=== PATIENT | female | born 1970 | race Caucasian/White ===

== ENCOUNTER 2023-02-20 07:32 | Outpatient (AMB) | payer BC, SELFPAY ==
--- NOTE | 2023-02-20 07:34 | MHC.PC.OV ---
Vital Signs 02/20/23 07:35 Height 5 ft 6.5 in Weight 145 lb BMI 23.1 BP 122/76 Blood Pressure Location Lt brachial Position Standing Pulse 71 Pulse Source Pulse Oximeter Pulse Oximetry (%) 98 Oxygen Delivery Method Room Air Intake Visit Reasons: NPV- Requesting PE Intake Note: Pt is here today for New patient visit PE. Pt states that she moved here from [place] in June. 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 She moved from [place] in June but is originally from [place]. Pt c/o chronic R thumb pain since October. Pt has been taking NSAIDs and wearing a brace without relief. Patient denies any injury. She uses her hands a lot, working on a computer and hiking using hiking poles. 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 1. Little interest or pleasure in doing things: several days 2. Feeling down, depressed, or hopeless: several days 3. Trouble falling or staying asleep, or sleeping too much: more than half the days 4. Feeling tired or having little energy: several days 5. Poor appetite or overeating: not at all 6. Feeling bad about yourself - or that you are a failure or have let yourself or your family down: not at all 7. Trouble concentrating on things, such as reading the newspaper or watching television: not at all 8. Moving or speaking so slowly that other people could have noticed. Or the opposite - being so fidgety or restless that you have been moving around a lot more than usual: not at all 9. Thoughts that you would be better off or of hurting yourself in some way: not at all Total score: 5 Depression Screening Interpretation: Negative Source: Developed by Drs. Guille Moya, Gela Barillas, Eduardo Hinton and colleagues, with an educational marietta from [employer]. Thrive Questionnaire Date Thrive assessed: 02/20/23 I am a: Patient What is your living situation today?: I have a steady place to live Within the past 12 months, did the food you bought not last and you didn't have the money to get more?: Never true Within the past 12 months, did you worry whether your food would run out before you got money to buy more?: Never true Do you have trouble paying for medicines?: No Do you have trouble getting transportation to medical appointments?: No Do you have trouble paying your heating and electricity bill?: No Do you have trouble taking care of your child, family member or friend?: No Do you have trouble with day-to-day activities such as bathing, preparing meals, shopping, managing finances, etc.?: No Are you currently unemployed and looking for a job?: No Are you interested in more education?: No Please select the resources that you would like help with: None Currently or been in a relationship where the following occur: no concerns reported AUDIT C Alcohol Use Questionnaire (AUDIT-C) 1. How often do you have a drink containing alcohol?: Never 3. How often do you have six or more drinks on one occasion?: Never Total Score: 0 CHICA-7 AMB Questionnaire CHICA-7 Date CHICA - 7 assessed: 07/12/23 Feeling nervous, anxious, or on edge: 1 = Several days Not being able to stop or control worryin = Several days Worrying too much about different things: 1 = Several days Trouble relaxin = Not at all Being so restless that it is hard to sit still: 0 = Not at all Becoming easily annoyed or irritable: 1 = Several days Feeling afraid as if something awful might happen: 0 = Not at all Total CHICA-7 score (0-4 normal; 5-9 mild; 10-14 moderate; 15-21 severe): 4 Source: Developed by Drs. Guille Moya, Gela Barillas, Eduardo Hinton and colleagues, with an educational marietta from [employer]. Review of Systems Const All systems reviewed & are unremarkable except as noted in HPI and below Reports no additional complaints Eyes Reports no additional complaints ENT Reports no additional complaints Card Reports no additional complaints Resp Reports no additional complaints GI Reports no additional complaints Physical exam (Primary Care) Vital Signs: Last Vital Signs Pulse 71 02/20/23 07:35 BP 122/76 02/20/23 07:35 Pulse Ox 98 02/20/23 07:35 Oxygen Delivery Method Room Air 02/20/23 07:35 BMI result Body Mass Index 23.1 Tobacco/Smoking Status: Tobacco use Status Tobacco use date assessed 02/20/23 02/20/23 07:50 Patient Tobacco Use Status Never used Tobacco 02/20/23 08:19 e-Cigarette/Vaping Use Never Used 02/20/23 08:19 Depression Screening Interpretation: Negative Currently or been in a relationship where the following occur: no concerns reported Const General: no acute distress HENMT Head: Yes normal to inspection Ears: hearing grossly normal bilaterally Face and sinus: Yes normal facial exam Mouth: Normal oral and palatal mucosa present Throat: Yes posterior oropharynx normal Neck Neck: Yes no lymphadenopathy and Yes supple Resp Effort & Inspection: normal respiratory effort Auscultation: clear to auscultation bilaterally Cardio Rhythm: regular rhythm Heart sounds: S1 normal heart sound present and S2 normal heart sound present GI Inspection: Yes normal to inspection Palpation (GI): Soft to palpation Percussion: Yes normal to percussion Auscultation: normal bowel sounds Extrem Other: there is decreased range of motion and tenderness at the base of left thumb, no joint swelling erythema warmth General: Yes no clubbing, cyanosis or edema Assessment and Plan Assessment & Plan (1) Chronic bilateral low back pain: Comment: MR in Apr 2022 DJD,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 She will be referred for screening colonoscopy. 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 Code(s): Z01.419 - Encounter for gynecological examination (general) (routine) without abnormal findings (4) Hx of screening mammography: Comment: 04/2022 in [place] Code(s): Z92.89 - Personal history of other medical treatment (5) Dysplastic nevi: Comment: Referred to dermatology Code(s): D23.9 - Other benign neoplasm of skin, unspecified (6) Left wrist tendinitis: Code(s): M77.8 - Other enthesopathies, not elsewhere classified Plan: Check x-rays of both wrists and referred to hand surgeon for cortisone injection (7) Ovarian cyst: Comment: 3.5 cm R ovarian cyst on MR 05/03 Code(s): N83.209 - Unspecified ovarian cyst, unspecified side Plan: for a right ovarian cyst found on the MRI of lumbar spine pelvic ultrasound will be obtained to evaluate Orders: Orders Comprehensive [place]. Panel Fast Today Z00.00 - Encounter for general adult medical examination without abnormal findings Lipid Panel Today Z00.00 - Encounter for general adult medical examination without abnormal findings TSH reflex Free T4 Today Z00.00 - Encounter for general adult medical examination without abnormal findings Vitamin D 25-OH Total Today Z00.00 - Encounter for general adult medical examination without abnormal findings Complete Blood Count Auto Diff Today Z00.00 - Encounter for general adult medical examination without abnormal findings US pelvic and transvaginal Today N83.209 - Unspecified ovarian cyst, unspecified side XR wrist RT 2V Today M25.532 - Pain in left wrist, M77.8 - Other enthesopathies, not elsewhere classified XR wrist LT 2V Today M25.532 - Pain in left wrist, M77.8 - Other enthesopathies, not elsewhere classified Referrals Gastroenterology Referral Z00.00 - Encounter for general adult medical examination without abnormal findings Hand Surgery Referral M77.8 - Other enthesopathies, not elsewhere classified Dermatology Referral D23.9 - Other benign neoplasm of skin, unspecified Medications: New tizanidine 2 mg PO Q8H PRN 60 tabs 1RF muscle spasticity meloxicam 15 mg PO DAILY 30 tabs 0RF Coding Level of Care Code New Pt Prev Care 40-64y(43373) Diagnoses Chronic bilateral low back pain M54.50; G89.29 Annual physical exam Z00.00 Normal pelvic exam Z01.419 Hx of screening mammography Z92.89 Dysplastic nevi D23.9 Left wrist tendinitis M77.8 Ovarian cyst N83.209
[2023-02-20 07:35] VITALS: BP 122/76; PULSE 71; O2SAT 98; BMI 23.1
== END 2023-02-20 08:45 | disposition home or self-care (01) ==
PROVIDERS: Visit Provider Internal Medicine
DX: Z00.00 Encounter for general adult medical examination without abnormal findings (principal); M54.50 Low back pain, unspecified; G89.29 Other chronic pain; Z92.89 Personal history of other medical treatment; D23.9 Other benign neoplasm of skin, unspecified; M77.8 Other enthesopathies, not elsewhere classified; N83.209 Unspecified ovarian cyst, unspecified side
CPT/HCPCS: 99386

== ENCOUNTER 2023-02-20 08:26 | Outpatient (REF) | payer BC, SELFPAY ==
--- NOTE | ~2023-02-20 | XR_ITS ---
X-RAY RIGHT WRIST X-RAY LEFT WRIST CLINICAL HISTORY: Enthesopathies, unspecified. COMPARISON: No relevant prior studies are available for comparison. TECHNIQUE: 3 views of each wrist. FINDINGS: Right wrist: No acute fractures or malalignment. Minimal joint space narrowing of the first carpometacarpal space. No erosions or chondrocalcinosis. No significant soft tissue abnormality. Left wrist: No acute fractures or malalignment. Minimal joint space narrowing of the first carpometacarpal space. No erosions or chondrocalcinosis. No significant soft tissue abnormality. XR/XR wrist RT min 3V IMPRESSION: 1. No acute fractures or subluxation. 2. Mild bilateral degenerative osteoarthrosis of the first carpometacarpal joint. 3. No erosions or chondrocalcinosis.
--- NOTE | ~2023-02-20 | XR_ITS ---
X-RAY RIGHT WRIST X-RAY LEFT WRIST CLINICAL HISTORY: Enthesopathies, unspecified. COMPARISON: No relevant prior studies are available for comparison. TECHNIQUE: 3 views of each wrist. FINDINGS: Right wrist: No acute fractures or malalignment. Minimal joint space narrowing of the first carpometacarpal space. No erosions or chondrocalcinosis. No significant soft tissue abnormality. Left wrist: No acute fractures or malalignment. Minimal joint space narrowing of the first carpometacarpal space. No erosions or chondrocalcinosis. No significant soft tissue abnormality. XR/XR wrist LT min 3V IMPRESSION: 1. No acute fractures or subluxation. 2. Mild bilateral degenerative osteoarthrosis of the first carpometacarpal joint. 3. No erosions or chondrocalcinosis.
[2023-02-20 11:17] LABS: Appearance Urine Clear; Color Urine Yellow; Glucose Urine UA Negative (Negative); Leukocyte Esterase Urine Negative (Negative); Nitrite Urine Negative (Negative); Specific Gravity - Urine <= 1.005 (1.005-1.025); Urine Blood Negative (Negative); Urine Ketones Negative (Negative); Urine Protein Negative (Neg-Trace)
[2023-02-20 11:17] LABS: MANUAL DIFF FLAG NO
[2023-02-20 11:20] LABS: Bacteria Urine None Seen (None Seen); Hyaline Casts Urine 0-2 /LPF (0-2); RBC Urine 0-2 /HPF (0-2); Squamous Epithelial Cell Urine 0-2 /HPF (0-2); WBC Urine 0-5 /HPF (0-5)
[2023-02-20 11:38] LABS: Basophils Percent Auto 0.5 % (0-2); Eosinophils Absolute Auto 0.1 X10*3/uL (0.0-0.4); Eosinophils Percent Auto 2.2 % (0-4); Hematocrit 41.6 % (37.0-47.0); Hemoglobin 14.5 g/dl (12.0-16.0); Imm Gran Abs Auto 0.01 X10*3/uL (0.00-0.03); Imm Gran Pct Auto 0.2 % (0.0-0.4); Lymphocytes Percent Auto 34.4 % (20-40); Mean Corpuscular HGB Conc 34.9 g/dl (31.0-35.0); Mean Corpuscular Volume 91.8 fL (80.0-98.0); Mean Platelet Volume 11.7 fL (9.4-12.3); Monocytes Absolute Auto 0.5 X10*3/uL (0.1-1.2); Monocytes Percent Auto 7.9 % (2-11); Neutrophils Absolute Auto 3.2 x10*3/uL (2.0-8.3); Neutrophils Percent Auto 54.8 % (45-73); Platelet Count 258 X10*3/uL (160-400); Red Blood Count 4.53 X10*6/uL (4.20-5.50); White Blood Count 5.8 X10*3/uL (4.8-10.8)
[2023-02-20 12:32] LABS: Alanine Aminotransferase 16 U/L (0-31); Albumin Level 4.3 g/dL (3.5-5.0); Alkaline Phosphatase 57 U/L (39-117); Anion Gap 15 (12-20); Aspartate Amino Transferase 18 U/L (5-31); Blood Urea Nitrogen 8 mg/dL (9-16); Calcium 9.8 mg/dL (8.4-10.2); Carbon Dioxide 23 mmol/L (22-29); Chloride 105 mmol/L (96-108); Cholesterol 261 mg/dL; Estimated Glomerular Filt Rate > 60; Glucose Fasting 98 mg/dL (60-99); HDL Cholesterol 85 mg/dL; LDL Cholesterol Calculated 162 mg/dl; Potassium 3.9 mmol/L (3.3-5.1); Sodium 139 mmol/L (135-145); Total Protein 7.1 g/dL (6.5-8.0); Triglycerides 71 mg/dL
[2023-02-20 12:51] LABS: Bilirubin Total 0.8 mg/dL (0.0-1.0); TSH reflex Free T4 1.47 uIU/mL (0.32-4.0); Vitamin D 25-OH Total 99.4 ng/mL (>30)
== END 2023-02-20 08:27 | disposition home or self-care (01) ==
LOC: HO.HMGCLDS 08:26
PROVIDERS: PCP Internal Medicine; Visit Provider Internal Medicine
DX: Z00.00 Encounter for general adult medical examination without abnormal findings (principal); M77.8 Other enthesopathies, not elsewhere classified
CPT/HCPCS: 36415; 73110; 80053; 80061; 81001; 82306; 84443; 85025

== ENCOUNTER 2023-02-26 12:58 | Outpatient (REF) | payer BC, SELFPAY ==
--- NOTE | ~2023-02-26 | US_ITS ---
EXAMINATION: US PELVIS CLINICAL INFORMATION: A 3.5 cm right ovarian cyst seen on MR April 2022. COMPARISON: None available. TECHNIQUE: Ultrasound of the pelvis is performed using both transabdominal and transvaginal transducers along with Doppler. Transvaginal imaging is performed due to inadequate visualization transabdominally. FINDINGS: Uterus: The uterus is retroverted, heterogeneous and measures 5.4 x 3.6 x 3.6 cm. Visualization severely limited as patient had difficulty tolerating transvaginal exam, bowel gas and uterine positioning. The endometrium is not visualized. No discrete fibroid. Left ovary not visualized. No significant free fluid. Right ovary measures 2.3 x 1.1 x 1.2 cm, volume 1.5 mL and is unremarkable. US/US pelvic and transvaginal IMPRESSION: 1. Visualization severely limited as patient had difficulty tolerating transvaginal exam, bowel gas and retroverted uterine positioning. 2. The endometrium is not visualized. 3. No discrete fibroid. 4. Left ovary not visualized. Right ovary unremarkable. 5. No significant free fluid.
== END 2023-02-26 12:59 | disposition home or self-care (01) ==
LOC: HO.HMGCX 12:58
PROVIDERS: PCP Internal Medicine; Visit Provider Internal Medicine
DX: N83.209 Unspecified ovarian cyst, unspecified side (principal)
CPT/HCPCS: 76830; 76856

== ENCOUNTER 2023-04-05 08:00 | Outpatient (AMB) | payer BC, SELFPAY ==
--- NOTE | 2023-04-05 08:07 | MHC.OFFVIS ---
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 Pain started back in August when she started to use her walking poles. She states that her pain is on the base of the thumb and it moves down to the wrist. Patient reports using a brace that helps her relief some of the pain. 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 The patient reports in 08/2022 she started to use a walking pole. She claims the pain is on the base of her left thumb and it radiates down her wrist. She states she uses a brace that gives her some relief from pain. 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 No ecchymosis, erythema, or edema. Able to perform full finger flexion, extension, abduction, adduction, finger cross, okay sign, and thumbs up without deficit. Positive dorsal compartment tenderness to palpation left thumb. Positive Bay?s. Able to make a closed fist. Sensation intact. Capillary refill is brisk. Radial pulse intact. Assessment & Plan Assessment & Plan (1) De Quervain's tenosynovitis, left: Code(s): M65.4 - Radial styloid tenosynovitis [de Quervain] Plan Ms. Booth is a 52-year-old right hand dominant female who presents in the office today, as a new patient, for an evaluation of left wrist pain. The patient reports in 08/2022 she started to use a walking pole. She claims the pain is on the base of her left thumb and it radiates down her wrist. She states she uses a brace that gives her some relief from pain. The patient will be referred to Dr. Beckham for De Quervain's injection. She has a stabling brace she will wear in the mean time. Follow up will be with Dr. Levine, or sooner if needed. X-rays of the left hand, obtained on 02/20/2023, revealed mild osteoarthritis at the CMC joint. NO evidence of acute fracture or dislocation. Patient Instructions: Scribed for Swetha Suarez PA-C by Mónica Ray medical transcriber, on 04/05/2023 at 8:06 am, EST. Coding Level of Care Code New Pt Level 4 (96197) Diagnoses De Quervain's tenosynovitis, left M65.4
[2023-04-05 08:12] VITALS: BMI 23.4
== END 2023-04-05 08:36 | disposition home or self-care (01) ==
PROVIDERS: PCP Internal Medicine; Visit Provider Physician Assistant
DX: M65.4 Radial styloid tenosynovitis [de Quervain] (principal); M18.12 Unilateral primary osteoarthritis of first carpometacarpal joint, left hand
CPT/HCPCS: 99203

== ENCOUNTER → 2023-04-05 08:00 | Outpatient (BNVA) | payer BC, SELFPAY | PROVIDERS: PCP Internal Medicine; Visit Provider Physician Assistant ==

== ENCOUNTER 2023-04-18 10:15 | Outpatient (AMB) | payer BC, SELFPAY ==
--- NOTE | 2023-04-18 10:23 | MHC.OFFVIS ---
Intake Intake Visit Reasons: ov- De Quervarias of left hand Intake Note: Lauren 52 yr old female presents today for her left hand/wrist pain. Patient reports in 08/2022 she started to use a walking pole. She claims the pain is on the base of her left thumb and radiates down her wrist. She states she uses a brace that gives her some relief from pain. Last seen on 04/05/23 with Orlando Suarez who referred patient to be seen with Dr. Beckham to discuss dequervain injection. Allergies No Known Allergies Allergy (Verified 04/18/23 10:26) Medication List - Last Reconciled 04/18/23 by Magy Greenberg MD tizanidine 2 mg PO Q8H PRN HPI HPI Comments History of Present Illness Details Previously seen by Swetha Suarez PA for de Quervain tenosynovitis. Referred to physiatry for further management and possible injection. Symptoms may have started after moving/packing June to July 2022. Could be related to a wear mittens while hiking with walking sticks. She had recently moved from [place] to [place]. Pain under base of left thumb. Wearing the thumb spica splint some mild makes it better. Denies numbness Denies weakness Mentions history of right-sided neck and arm pain, hand numbness. Previously told to have disc herniation in [place]. This is separate issue from left hand. 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 MSK: [No] joint effusion noted. [No] deformity noted. [No intrinsic hand weakness noted]. [No atrophy noted]. Bay test positive left. Carpal compression test [negative]. Tinel sign [negative]. Strength is [5/5 in all muscle groups tested]. No increased tone noted. Neurological: Neurologic examination of the upper and lower extremities was nonfocal with intact sensation, muscle stretch reflexes and without focal motor deficits [ ]. Spicer?s [negative bilaterally]. Gait is [non-]antalgic without loss of balance. Office Procedures Therapeutic Injection Therapeutic Injection Details: Consent obtained. Patient placed left hand vertically with thumb held in slight flexion. Gap between tendons abductor pollicis longus and extensor pollicis brevis was identified. Area cleaned in sterile manner. Gauge 25 0.5 inch needle inserted perpendicular into the gap approximately between the tendons. Injected solution containing 10 mg Kenalog and 0.75 mL 2% lidocaine. Patient tolerated procedure well. No complications noted. All charges added?: Additional procedure code (CPT) needed (need code for tendon injection (de quervain tenosynovitis)) Office Meds triamcinolone acetonide 40 mg/mL suspension for injection Performing Provider: Magy Greenberg MD Performing Location: [facility] [place] [facility] Documented (not given) by: Magy Greenberg MD on 04/18/23 11:53 Dose Route Admin Location Dispensed Lot Number Expiration Date [facility] [employer] 10 mg Tendon Sheath Inj. mL Results Reviewed Results Reviewed: 04/18/23 10:57 Lidocaine HCl 1 % [Xylocaine 1 %] 2 ml .ROUTE .STK-MED ONE Triamcinolone Acetonide [Kenalog-40] 40 mg .ROUTE .STK-MED ONE I independently reviewed the results of the following: The bilateral wrist x-ray showed mild arthritis CMC joint. Assessment & Plan Assessment & Plan (1) De Quervain's tenosynovitis, left: Code(s): M65.4 - Radial styloid tenosynovitis [de Quervain] Plan Thumb spica splint is helping at least partially. She is interested in doing injection and it the was done during this visit. Continue splint during the day. No lifting today for 24 hours. Assessment and plan discussed with patent, and patient was agreeable. All questions were answered thoroughly. Follow-up in 3 months. Orders: Orders Trigger Point Injection Today M65.4 - Radial styloid tenosynovitis [de Quervain] Medications: New triamcinolone acetonide 10 mg (0.25 mL) Tendon Sheath Inj. ONCE 0.25 mL 0RF M65.4 - Radial styloid tenosynovitis [de Quervain] Coding Level of Care Code New Pt Level 4 (75546) Diagnoses De Quervain's tenosynovitis, left M65.4 Comment Please double check CPT codes used for injection
== END 2023-04-18 11:13 | disposition home or self-care (01) ==
PROVIDERS: PCP Internal Medicine; Visit Provider Physical Medicine & Rehabilitation
DX: M65.4 Radial styloid tenosynovitis [de Quervain] (principal)
CPT/HCPCS: 20550; 99204

== ENCOUNTER → 2023-04-18 10:15 | Outpatient (BNVA) | payer BC, SELFPAY | PROVIDERS: PCP Internal Medicine; Visit Provider Physical Medicine & Rehabilitation | DX: M65.4 Radial styloid tenosynovitis [de Quervain] (principal) | CPT/HCPCS: 20550; J3301 ==

== ENCOUNTER 2023-05-16 08:35 | Outpatient (AMB) | payer BC, SELFPAY ==
--- NOTE | 2023-05-16 08:42 | MHC.OFFVIS ---
Intake Vital Signs 05/16/23 08:49 Height 5 ft 6 in Weight 145 lb BMI 23.4 Intake Visit Reasons: Newprob-Right hand/shoulder Intake Note: Lauren 52 yr old male rt hand presents today for a new problem visit for her right hand and shoulder. Patient last seen with Dr Beckham for left hand dequervain, received trigger point injections. Patient states her right shoulder pain is intermittent for the last 3 -4 yrs. States she feels tightness and achenes. States her ROM is okay but gives discomfort in neck. At times she feels grinding in shoulder. Patient mention she at times gets nerve pain in her hand due to her pinch nerve in neck. patient states she has tried P.T for her shoulder with temporary relief. Denies injection for right shoulder in the past. Allergies No Known Allergies Allergy (Verified 05/16/23 08:48) Medication List - Last Reconciled 05/16/23 by Magy Greenberg MD tizanidine 2 mg PO Q8H PRN HPI HPI Comments History of Present Illness Details Recently seen for left De Quervain tenosynovitis. Injection done, took 1-2 weeks to have some effect, then after improved that she was only getting episodes of pain. Yesterday she must have done something that has caused the thumb to click. Feels like marbles or bone rubbing. She can bend the thumb better though. She is wearing the thumb spica splint. Today, right shoulder been on/off 2-3 years ago. Xray in [place] was normal? Once a week, would have ache lateral neck down to shoulder. Still has ROM full but difficult to put shirt on or fasten bra to the back. Aches while sleeping. Does not shoot down to fingers. Separate tingling on the fingers, right. Right handed. Denies tingling on left hand except for symptoms above. 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 MSK: Cervical range of motion full. Negative Spurling sign. Tender/tight on the right upper trapezius. Right shoulder range of motion full. Negative Goldberg sign. Negative empty can sign. Negative speed's test. No joint effusion noted. No deformity noted. No intrinsic hand weakness noted. No atrophy noted. Bay test is now negative on the left side. There is no inflammation or swelling on the base of the left thumb. There is tenderness under base/CMC joint. Negative Bay test on the right. Carpal compression test positive on the right wrist. Tinel sign negative. Strength is 5/5 in all muscle groups tested. No increased tone noted. Neurological: Neurologic examination of the upper and lower extremities was nonfocal with intact sensation, muscle stretch reflexes and without focal motor deficits . Spicer?s negative bilaterally. Gait is non-antalgic without loss of balance. Results Reviewed Results Reviewed: X-RAY RIGHT WRIST ordered by Dr. Price X-RAY LEFT WRIST CLINICAL HISTORY: Enthesopathies, unspecified. COMPARISON: No relevant prior studies are available for comparison. TECHNIQUE: 3 views of each wrist. FINDINGS: Right wrist: No acute fractures or malalignment. Minimal joint space narrowing of the first carpometacarpal space. No erosions or chondrocalcinosis. No significant soft tissue abnormality. Left wrist: No acute fractures or malalignment. Minimal joint space narrowing of the first carpometacarpal space. No erosions or chondrocalcinosis. No significant soft tissue abnormality. XR/XR wrist LT min 3V IMPRESSION: 1. No acute fractures or subluxation. 2. Mild bilateral degenerative osteoarthrosis of the first carpometacarpal joint. 3. No erosions or chondrocalcinosis. Assessment & Plan Assessment & Plan (1) De Quervain's tenosynovitis, left: Code(s): M65.4 - Radial styloid tenosynovitis [de Quervain] (2) Arthritis of carpometacarpal (CMC) joint of left thumb: Code(s): M18.12 - Unilateral primary osteoarthritis of first carpometacarpal joint, left hand (3) Numbness of right hand: Code(s): R20.0 - Anesthesia of skin (4) Myofascial pain: Code(s): M79.18 - Myalgia, other site (5) Shoulder pain, right: Code(s): M25.511 - Pain in right shoulder Qualifiers: Chronicity: chronic Qualified Code(s): M25.511 - Pain in right shoulder; G89.29 - Other chronic pain (6) Bilateral tennis elbow: Code(s): M77.11 - Lateral epicondylitis, right elbow; M77.12 - Lateral epicondylitis, left elbow Plan 1. Left de Quervain tenosynovitis is improved based on normal exam today. Continue to wear a thumb spica splint but needs rest breaks in between. The clicking that she complains of could be from the tendon slipping over the joint or disc CMC arthritis itself. 2. Right-sided shoulder pain is most likely from myofascial. Did not see signs of shoulder joint issues or rotator cuff issues. We will give her exercises to stretch out her cervical/trapezius muscles. She may apply heat up to 3 times a day as needed for pain. We will also get shoulder x-ray today to rule out DJD. 3. She does have numbness in the right hand. We will schedule her for EMG to confirm Carpal Tunnel Syndrome. 4. Finally she complains of bilateral elbow pain, exam shows tenderness over lateral epicondyles, most likely tennis elbow. We will give her exercises for this. May apply ice p.r.n. for pain. We talked about being careful with use of NSAIDs given her side effects of being gassy. Tylenol might be safer. Orders: Orders NE electromyogram (EMG) Today M18.12 - Unilateral primary osteoarthritis of first carpometacarpal joint, left hand, R20.0 - Anesthesia of skin XR shoulder RT min 2V Today M25.511 - Pain in right shoulder NE nerve conduction velocity Today M18.12 - Unilateral primary osteoarthritis of first carpometacarpal joint, left hand, R20.0 - Anesthesia of skin Coding Level of Care Code Est Pt Level 4 (72968) Diagnoses De Quervain's tenosynovitis, left M65.4 Arthritis of carpometacarpal (CMC) joint of left thumb M18.12 Numbness of right hand R20.0 Myofascial pain M79.18 Chronic right shoulder pain M25.511; G89.29 Chronicity: chronic Bilateral tennis elbow M77.11; M77.12
[2023-05-16 08:49] VITALS: BMI 23.4
== END 2023-05-16 09:32 | disposition home or self-care (01) ==
PROVIDERS: PCP Internal Medicine; Visit Provider Physical Medicine & Rehabilitation
DX: M65.4 Radial styloid tenosynovitis [de Quervain] (principal); M18.12 Unilateral primary osteoarthritis of first carpometacarpal joint, left hand; R20.0 Anesthesia of skin; M79.18 Myalgia, other site; M25.511 Pain in right shoulder; G89.29 Other chronic pain; M77.11 Lateral epicondylitis, right elbow; M77.12 Lateral epicondylitis, left elbow
CPT/HCPCS: 99214

== ENCOUNTER 2023-05-16 08:35 | Outpatient (REF) | payer BC, SELFPAY | END 2023-05-16 08:36 | disposition home or self-care (01) | LOC: HO.HOSX 08:35 | PROVIDERS: PCP Internal Medicine; Visit Provider Physical Medicine & Rehabilitation | DX: M25.511 Pain in right shoulder (principal); M65.4 Radial styloid tenosynovitis [de Quervain]; M18.12 Unilateral primary osteoarthritis of first carpometacarpal joint, left hand; R20.2 Paresthesia of skin; M79.18 Myalgia, other site; M77.11 Lateral epicondylitis, right elbow; M77.12 Lateral epicondylitis, left elbow | CPT/HCPCS: 73030 ==

== ENCOUNTER 2023-06-13 15:34 | Outpatient (REF) | payer BC, SELFPAY ==
--- NOTE | 2023-06-13 15:37 | EMG_ITS ---
Chief complaint: Right hand numbness Reason for referral: Evaluate for Carpal Tunnel Syndrome Procedure done: Right upper extremity NCS/EMG Precautions and/or limitations: None The limb temperature was monitored continuously and remained between 32-36 degrees C during the performance of the NCS. Nerve Conduction Studies Anti Sensory Summary Table ?Stim Site NR Onset (ms) Norm Onset (ms) Peak (ms) Norm Peak (ms) O-P Amp (?V) Norm O-P Amp Site1 Site2 Delta-0 (ms) Dist (cm) Anastacio (m/s) Norm Anastacio (m/s) Right Median Anti Sensory (2nd Digit) Wrist ? 2.6 3.3 <3.6 54.9 >10 Wrist 2nd Digit 2.6 14.0 54 Right Ulnar Anti Sensory (5th Digit) Wrist ? 2.6 3.4 <3.7 48.2 >15.0 Wrist 5th Digit 2.6 14.0 54 Motor Summary Table ?Stim Site NR Onset (ms) Norm Onset (ms) O-P Amp (mV) Norm O-P Amp iAmp (mV) Amp (1st) (%) Site1 Site2 Delta-0 (ms) Dist (cm) Anastacio (m/s) Norm Anastacio (m/s) Right Median Motor (Abd Poll Brev) Wrist ? 3.8 <3.9 10.6 >4.5 12.4 100.0 Elbow Wrist 3.5 20.0 57 >45 Elbow ? 7.3 10.6 12.3 100.0 Right Ulnar Motor (Abd Dig Minimi) Wrist ? 3.0 <3.0 8.2 >5 9.7 100.0 B Elbow Wrist 2.9 19.0 66 >45 B Elbow ? 5.9 7.7 9.1 93.9 A Elbow B Elbow 1.3 10.0 77 >45 A Elbow ? 7.2 7.9 9.3 96.3 Comparison Summary Table ?Stim Site NR Peak (ms) Norm Peak (ms) P-T Amp (?V) Site1 Site2 Delta-P (ms) Norm Delta (ms) Right Median/Radial Dig I Comparison (Digit 1 - 10cm) Median ? 2.7 <2.9 995.0 Median Radial 0.4 Radial ? 2.3 <2.8 55.7 EMG ?Side Muscle Nerve Root Ins Act Fibs Psw Amp Dur Poly Recrt Int Pat Comment Right 1stDorInt Ulnar C8-T1 Nml Nml Nml Nml Nml 0 Nml Complete Right FlexCarRad Median C6-7 Nml Nml Nml Nml Nml 0 Nml Complete Right Biceps Musculocut C5-6 Nml Nml Nml Nml Nml 0 Nml Complete Right Triceps Radial C6-7-8 Nml Nml Nml Nml Nml 0 Nml Complete Right Deltoid Axillary C5-6 Nml Nml Nml Nml Nml 0 Nml Complete FINDINGS: All motor and sensory nerves tested showed normal latencies, amplitudes and conduction velocities. Concentric needle EMG was performed in selected muscles of the right upper extremity. Study did not reveal signs of electric abnormalities as shown in the table below. IMPRESSION: 1. This is a normal study. 2. There is no electrodiagnostic evidence for median neuropathy, ulnar neuropathy, brachial plexopathy, or cervical radiculopathy. Thank you for your kind referral. Magy Greenberg MD, KERRI Board Certified, [place] Board [employer] and Rehabilitation (ABPMR) Board Certified, [place] Board of Electrodiagnostic Medicine (ABEM) [place] [id number] [facility]
== END 2023-06-13 15:35 | disposition home or self-care (01) ==
LOC: HO.NEURO 15:34
PROVIDERS: PCP Internal Medicine; Visit Provider Physical Medicine & Rehabilitation
DX: R20.0 Anesthesia of skin (principal); M18.12 Unilateral primary osteoarthritis of first carpometacarpal joint, left hand
CPT/HCPCS: 95886; 95909

== ENCOUNTER → 2023-06-13 15:37 | Outpatient (BNV) | payer BC, SELFPAY | PROVIDERS: PCP Internal Medicine; Visit Provider Physical Medicine & Rehabilitation | DX: R20.0 Anesthesia of skin (principal) | CPT/HCPCS: 95886; 95909 ==

== ENCOUNTER 2023-07-03 13:04 | Outpatient (AMB) | payer BC, SELFPAY ==
--- NOTE | 2023-07-03 13:07 | A.OFFVIS_ITS ---
Intake Vital Signs 07/03/23 13:13 Height 5 ft 6 in Weight 141 lb 1.533 oz BMI 22.8 BP 143/84 H Blood Pressure Location Lt brachial Position Sitting Pulse 85 Intake Visit Reasons: Colonoscopy screening Intake Note: Lauren presents in the office as a colonoscopy screening. CC: She states that she is not having any GI concerns. 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 female here today for pre c olonoscopy screening.? Patient was sent to us by her PCP.? This is her first colonoscopy screening.? Patient denies any gastrointestinal symptoms in the past or at present.? Patient's paternal grandmother of colorectal cancer.? Denies history of difficulty with sedation or anesthesia in the past.? Negative for history of sleep apnea.? Denies any history of cardiac, renal, pulmonary, or hepatic disease.?? No history of infectious? diseases like hepatitis A, B, C, HIV or tuberculosis.? Patient is not on any anticoagulation therapy. 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 Cognitive needs: No Hearing needs: No Vision needs: Yes Review of Systems Const Denies weight gain and Denies weight loss ENT Reports no additional complaints, Denies dysphagia and Denies odynophagia Card Reports no additional complaints Resp Reports no additional complaints GI Denies abdominal pain, Denies belching, Denies melena, Denies bloating, Denies change in bowel habits, Denies dysphagia, Denies excessive flatus, Denies dyspepsia, Denies heartburn, Denies diarrhea, Denies loose stools, Denies nausea, Denies odynophagia and Denies vomiting Musc Reports no additional complaints Neuro Reports no additional complaints Psych Reports no additional complaints Endo Reports no additional complaints Physical Exam Const General: healthy appearing, no acute distress and well developed Nutritional Appearance: well nourished Orientation/consciousness: patient oriented x3 HEENT Head: Yes normal to inspection, Yes normocephalic and Yes atraumatic Face and sinus: Yes normal facial exam Mouth: Normal oral and palatal mucosa present Throat: Yes posterior oropharynx normal, Yes tonsils normal and Yes uvula midline Eyes General: appearance normal, both eyes and all related structures Neck Neck: Yes normal visual inspection, Yes full ROM and Yes trachea midline Thyroid: Thyroid normal Resp Effort & Inspection: normal respiratory effort, able to speak in complete sentences, no tracheal deviation and symmetric chest movement Auscultation: clear to auscultation bilaterally Cardio Rate: regular rate Heart sounds: S1 normal heart sound present and S2 normal heart sound present GI Inspection: Yes normal to inspection and No distended Palpation (GI): Soft to palpation, not firm, nontender and No hepatosplenomegaly present Auscultation: normal bowel sounds General: Yes no CVA tenderness Back/Spine/Pelvis Back: no CVA tenderness Skin General skin exam: elasticity normal, turgor normal and dry skin Neuro General: patient oriented x3 Psych Appearance: grossly normal Mental Status: mental status grossly normal Affect: normal affect Assessment & Plan Assessment & Plan (1) Screen for colon cancer: Code(s): Z12.11 - Encounter for screening for malignant neoplasm of colon Plan: Patient denies any GI, cardiac or respiratory symptoms.? Denies any issues with anesthesia in the past.? Denies any history of sleep apnea.? No history infectious diseases in the past or present.? Not on any anticoagulation therapy.? Family history of colorectal cancer.? Patient denies melena, hematochezia, unintentional weight loss or ribbon like stools.? Discussed at length the pre-procedure,? prep, diet & medications as well as what to expect prior, during and after the procedure.?? Stressed the importance of good bowel prep. ?Recommended the use of Vaseline or Calmoseptine OTC & baby wipes with bowel movements to promote comfort.? ?Patient verbalizes understanding and agrees to plan of care.? She was given the opportunity to ask questions and all questions answered.? We will see her after the procedure.? Medications: New bisacodyl (Dulcolax (bisacodyl)) take 2 tabs at noon the day before your colonoscopy 10 mg (2 x 5 mg) PO ONCE 1 day 2 tabs 0RF Z12.11 - Encounter for screening for malignant neoplasm of colon polyethylene glycol 3350 (Miralax) As directed by gastroenterology department at [facility] 238 grams PO ONCE 238 grams 0RF Z12.11 - Encounter for screening for malignant neoplasm of colon Coding Level of Care Code New Pt Level 3 (72249) Diagnoses Screen for colon cancer Z12.11 Time Spent (min) 40 Comment 30 minutes spent with patient and additional 10 minutes spent reviewing her records
[2023-07-03 13:13] VITALS: BP 143/84; PULSE 85; BMI 22.8
== END 2023-07-03 14:49 | disposition home or self-care (01) ==
PROVIDERS: PCP Internal Medicine; Visit Provider Nurse Practitioner Family
DX: Z01.818 Encounter for other preprocedural examination (principal); Z12.11 Encounter for screening for malignant neoplasm of colon
CPT/HCPCS: S0285

== ENCOUNTER → 2023-07-03 13:04 | Outpatient (BNVA) | payer BC, SELFPAY | PROVIDERS: PCP Internal Medicine; Visit Provider Nurse Practitioner Family ==

== ENCOUNTER 2023-07-18 10:05 | Outpatient (REF) | payer BC, SELFPAY ==
--- NOTE | ~2023-07-18 | XR_ITS ---
EXAMINATION: XR KNEE, RIGHT CLINICAL INFORMATION: Pain unspecified knee COMPARISON: None available. TECHNIQUE: Three views of the right knee. FINDINGS: Joint effusion. Minimal medial marginal and posterior patellar degenerative changes. Joint spaces are preserved. XR/XR knee RT 3V IMPRESSION: Joint effusion. Minimal degenerative changes.
== END 2023-07-18 10:06 | disposition home or self-care (01) ==
LOC: HO.HOSX 10:05
PROVIDERS: PCP Internal Medicine; Visit Provider Physical Medicine & Rehabilitation
DX: M22.2X1 Patellofemoral disorders, right knee (principal); M65.4 Radial styloid tenosynovitis [de Quervain]
CPT/HCPCS: 73562

== ENCOUNTER 2023-07-18 10:05 | Outpatient (AMB) | payer BC, SELFPAY ==
--- NOTE | 2023-07-18 10:13 | MHC.OFFVIS ---
Intake Vital Signs 07/18/23 10:21 Height 5 ft 6 in Weight 141 lb BMI 22.8 Intake Visit Reasons: OV-De Quervarias of left hand-Follow up Intake Note: Lauren 52 yr old female presents today for her follow up visit for her left hand dequervains. States pain is better and is cont' to use her brace with improvement. . Patient also had her EMG study. Allergies Latex, Natural Rubber Allergy (Mild, Verified 07/03/23 13:13) Unknown Seasonal Allergies Allergy (Mild, Verified 07/03/23 13:13) Unknown HPI HPI Comments History of Present Illness Details Initially seen for left De Quervain tenosynovitis. Injection done, took overall 2 months to have some effect. She is feeling better up until last week, thinks she may have done something to exacerbate it. Also having the same right wrist pain. Difficulty with sleeping positions. Current thumb spica does not help when sleeping. But she wears it during the day at work. EMG bilateral upper extremities done normal. Also mentions right knee pain for the last 2 months. Pain more on the quadriceps and patella. 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 MSK: Bay test is now negative on the left side but slightly positive on the right. There is no inflammation or swelling on the base of the left thumb. There is tenderness under base/CMC joint bilateral. She noted a dup or thinning at the base of the thumb/radial wrist. But I do not see any true atrophy. When she has sink and weakness. Strength is 5/5 in all muscle groups tested. No increased tone noted. Right knee-no joint line tenderness. Positive patellar compression test. Points to distal quadriceps a source of pain. No signs of inflammation/swelling/redness/warmth. Neurological: Neurologic examination of the upper and lower extremities was nonfocal with intact sensation, muscle stretch reflexes and without focal motor deficits . Spicer?s negative bilaterally. Gait is non-antalgic without loss of balance. Results Reviewed Results Reviewed: EMG by me 06/13/2023 bilateral upper extremity IMPRESSION: 1. This is a normal study. 2. There is no electrodiagnostic evidence for median neuropathy, ulnar neuropathy, brachial plexopathy, or cervical radiculopathy. Assessment & Plan Assessment & Plan (1) De Quervain's tenosynovitis, bilateral: Code(s): M65.4 - Radial styloid tenosynovitis [de Quervain] (2) Patellofemoral pain syndrome: Code(s): M22.2X9 - Patellofemoral disorders, unspecified knee Qualifiers: Laterality: right Qualified Code(s): M22.2X1 - Patellofemoral disorders, right knee Plan Recurrent de Quervain tenosynovitis. Does not appear as swollen as when I 1st saw her. EMG negative for Carpal Tunnel Syndrome. Continue to wear a thumb spica splint. We will see if a bigger or custom molded one that wraps around wrist would be better for nighttime use. As for right knee pain, will sent for x-ray today to see if there is any patellar displacement or arthritis. Assessment and plan discussed with patient, and patient was agreeable. All questions were answered thoroughly. Follow-up to be scheduled for right knee pain. Magy Greenberg MD, KERRI Board Certified, [place] Board [employer] and Rehabilitation (ABPMR) Board Certified, [place] Board [employer] Electro[employer]ostic [employer] (ABEM) Orders: Orders XR knee RT 3V Today M25.569 - Pain in unspecified knee Coding Level of Care Code Est Pt Level 4 (74075) Diagnoses De Quervain's tenosynovitis, bilateral M65.4 Patellofemoral pain syndrome of right knee M22.2X1 Laterality: right
[2023-07-18 10:21] VITALS: BMI 22.8
== END 2023-07-18 11:06 | disposition home or self-care (01) ==
PROVIDERS: PCP Internal Medicine; Visit Provider Physical Medicine & Rehabilitation
DX: M65.4 Radial styloid tenosynovitis [de Quervain] (principal); M22.2X1 Patellofemoral disorders, right knee
CPT/HCPCS: 99214

== ENCOUNTER 2023-08-28 10:05 | Outpatient (AMB) | payer BC, SELFPAY ==
[2023-08-28 10:08] VITALS: BMI 22.8
--- NOTE | 2023-08-28 10:08 | A.OFFVIS_ITS ---
Intake Vital Signs 08/28/23 10:08 Height 5 ft 6 in Weight 141 lb BMI 22.8 Intake Visit Reasons: OV - right knee follow up Intake Note: Lauren is a 52 year old female who presents today for a follow up of her right knee, at her last appointment xrays were obtained showing patellofemoral OA, patient was instructed to use ice application until follow up today. Allergies Latex, Natural Rubber Allergy (Mild, Verified 08/28/23 10:08) Unknown Seasonal Allergies Allergy (Mild, Verified 08/28/23 10:08) Unknown Medication List - Last Reconciled 08/28/23 by Magy Greenberg MD bisacodyl (Dulcolax (bisacodyl)) 10 mg (2 x 5 mg) PO ONCE 1 day polyethylene glycol 3350 (Miralax) 238 grams PO ONCE tizanidine 2 mg PO Q8H PRN HPI HPI Comments History of Present Illness Details Initially seen for left De Quervain tenosynovitis. Injection done 04/18/2023, took overall 2 months to have some effect. EMG bilateral upper extremities done normal. Left wrist much better after the injection. Right wrist continues to have the same pain. Wearing the thumb spica and icing does not help as much. She is here for a separate right knee pain. Denies any specific injury. Worse with standing at work and would bending. Noticed some clicking. X-ray done showed some effusion. Patellar spur. The joint spaces were preserved. 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 MSK: Bay test is positive on the right. There is tenderness under base/CMC joint bilateral. Right knee-effusion noted and mild warmth but no redness. Positive patellar compression test. Negative Dahlia's sign. Negative anterior-posterior drawer test. Negative pain with valgus or varus stress. Neurological: Neurologic examination of the upper and lower extremities was nonfocal with intact sensation, muscle stretch reflexes and without focal motor deficits . Spicer?s negative bilaterally. Gait is non-antalgic without loss of balance. Office Procedures Tendon Injection Tendon Injection Details: Consent obtained. Patient placed right hand vertically with thumb held in slight flexion. Gap between tendons abductor pollicis longus and extensor pollicis brevis was identified. Area cleaned in sterile manner. Gauge 25 0.5 inch needle inserted perpendicular into the gap approximately between the tendons. Injected solution containing 10 mg Kenalog and 0.75 mL 2% lidocaine. Patient tolerated procedure well. No complications noted. [id number] Tendon Sheath Injection All charges added?: Procedure code (CPT) selection complete Results Reviewed Results Reviewed: EMG by me 06/13/2023 bilateral upper extremity IMPRESSION: 1. This is a normal study. 2. There is no electrodiagnostic evidence for median neuropathy, ulnar neuropathy, brachial plexopathy, or cervical radiculopathy. Ordering Physician: Nadira Price MD Date of Service: 02/20/23 Procedure(s): XR wrist RT min 3V Accession Number(s): [id number] cc: Nadira Price MD~ X-RAY RIGHT WRIST X-RAY LEFT WRIST CLINICAL HISTORY: Enthesopathies, unspecified. COMPARISON: No relevant prior studies are available for comparison. TECHNIQUE: 3 views of each wrist. FINDINGS: Right wrist: No acute fractures or malalignment. Minimal joint space narrowing of the first carpometacarpal space. No erosions or chondrocalcinosis. No significant soft tissue abnormality. Left wrist: No acute fractures or malalignment. Minimal joint space narrowing of the first carpometacarpal space. No erosions or chondrocalcinosis. No significant soft tissue abnormality. XR/XR wrist RT min 3V IMPRESSION: 1. No acute fractures or subluxation. 2. Mild bilateral degenerative osteoarthrosis of the first carpometacarpal joint. 3. No erosions or chondrocalcinosis. Assessment & Plan Assessment & Plan (1) Joint pain: Code(s): M25.50 - Pain in unspecified joint Qualifiers: Joint pain location: wrist Laterality: right Qualified Code(s): M25.531 - Pain in right wrist (2) De Quervain's tenosynovitis, right: Code(s): M65.4 - Radial styloid tenosynovitis [de Quervain] (3) Patellofemoral pain syndrome: Code(s): M22.2X9 - Patellofemoral disorders, unspecified knee Qualifiers: Laterality: right Qualified Code(s): M22.2X1 - Patellofemoral disorders, right knee Plan 1. Multi joint pain and swelling. She is asking between osteoarthritis versus RA. We will send her for lab work, specifically ASHA and RF to be sure. 2. Right knee pain. Offered aspiration or injection today. She decides to prioritize injection to the right wrist today. Sending her to physical therapy. Advised icing and relative rest and elevation. If effusion continues, she may benefit from at least aspiration without steroid. 3. Right wrist pain, de Quervain tenosynovitis. Injection tolerated. Continue thumb spica splint. Assessment and plan discussed with patient, and patient was agreeable. All questions were answered thoroughly. Magy Greenberg MD, KERRI Board Certified, [place] [employer] and Rehabilitation (ABPMR) Board Certified, [place] Board [employer] Electrodiagnostic [employer] (ABEM) Orders: Orders ASHA Reflex Titer and Pattern Today M25.50 - Pain in unspecified joint Rheumatoid Factor Today M25.50 - Pain in unspecified joint AMB Injection-Tendon Today M65.4 - Radial styloid tenosynovitis [de Quervain] Coding Level of Care Code Est Pt Level 4 (45402) Diagnoses Arthralgia of right wrist M25.531 Joint pain location: wrist Laterality: right De Quervain's tenosynovitis, right M65.4 Patellofemoral pain syndrome of right knee M22.2X1 Laterality: right CPT Codes Tendon Injection - Tendon Injection 1: [id number] Tendon Sheath Injection ([id number])
== END 2023-08-28 10:56 | disposition home or self-care (01) ==
PROVIDERS: PCP Internal Medicine; Visit Provider Physical Medicine & Rehabilitation
DX: M65.4 Radial styloid tenosynovitis [de Quervain] (principal); M25.531 Pain in right wrist; M22.2X1 Patellofemoral disorders, right knee
CPT/HCPCS: 20550; 99214

== ENCOUNTER 2023-08-28 10:05 | Outpatient (REF) | payer BC, SELFPAY ==
[2023-08-28 12:11] LABS: Rheumatoid Factor < 13.0 IU/mL (<15.0)
[2023-09-02 15:37] LABS: Anti Nuclear Antibody Pattern Nuclear, Homogeneous; Anti Nuclear Antibody Screen POSITIVE (NEGATIVE)
== END 2023-08-28 10:06 | disposition home or self-care (01) ==
LOC: HO.LAB 10:05
PROVIDERS: PCP Internal Medicine; Visit Provider Physical Medicine & Rehabilitation
DX: M22.2X1 Patellofemoral disorders, right knee (principal); M25.531 Pain in right wrist; M65.4 Radial styloid tenosynovitis [de Quervain]
CPT/HCPCS: 20550; 36415; 86038; 86039; 86431; J3301

== ENCOUNTER 2023-10-31 14:41 | Outpatient (AMB) | payer BC, SELFPAY ==
--- NOTE | 2023-10-31 14:44 | A.OFFVIS_ITS ---
Intake Vital Signs 10/31/23 14:45 Height 5 ft 6 in Weight 150 lb 12.739 oz BMI 24.3 BP 146/80 H Blood Pressure Location Lt brachial Position Standing Pulse 98 Pulse Source Pulse Oximeter Temp 97.7 F Temp Source Skin Pulse Oximetry (%) 99 Oxygen Delivery Method Room Air Intake Visit Reasons: multi joint pain, positive ASHA/CONFIRMED Intake Note: New patient, internally referred by orthopedics, Dr. Beckham, presents to office today for +ASHA. Transportation Job Titles Required: No Accompanied by: Self / Same As Patient Allergies Latex, Natural Rubber Allergy (Mild, Verified 08/28/23 10:08) Unknown Seasonal Allergies Allergy (Mild, Verified 08/28/23 10:08) Unknown HPI HPI Comments History of Present Illness Details Ms. Kendrick 52-year-old female, here on referral from her orthopedic, presents for evaluation of highly positive ASHA 1:1280. She was being seen for de Quervain tenosynovitis and received injections which was effective. 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 The patient denies prolonged morning stiffness and red warm swollen joints. She does have concerns for knee pain. She feels more pain in her knees when she is climbing stairs. She does about 45 minutes of act ivity including stretching in the morning. She is very active. She did develop a rash on her back when she entered a pool in [place] which has since resolved with triamcinolone. Denies thyroid and liver concerns. She did take antimalarial for 2 years while she was in the [place]. She she reports no significant comorbidity and takes tizanidine for muscle relaxation. She has some dry mouth that she attributes to taking her Rita. The Patient denies Raynaud's phenomenon, butterfly rash on face; denies photosensitivity - getting sick or developing a rash from being out in the sun; denies blood or froth in urine; patient denies hx of SOB, chest pain. Patient denies hx of Carditis or Pleuritis. Patient denies any history of DVT/PE. Patient has had no miscarriages. The patient reports never have had to take aspirin or a blood thinners. Denies fevers, excessive fatigue, unexplained weight-loss or weight-gain, thinning hair or hair loss, hx of rashes; denies dry eyes, mouth sores or ulcers; ringing in the ear. She denies lumps or bumps under her skin, respiratory concerns. Ortho visit 08/28/2023: Initially seen for left De Quervain tenosynovitis. Injection done 04/18/2023, took overall 2 months to have some effect. EMG bilateral upper extremities done normal. Left wrist much better after the injection. Right wrist continues to have the same pain. Wearing the thumb spica and icing does not help as much. She is here for a separate right knee pain. Denies any specific injury. Worse with standing at work and would bending. Noticed some clicking. X-ray done showed some effusion. Patellar spur. The joint spaces were preserved. 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, [facility] Tobacco Use Status: Never used Tobacco e-Cigarette/Vaping Use: Never Used Current occupational status: employed 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 Constitutional: Non-toxic appearing. No acute distress. Well-developed and well-nourished. HEENT: Normocephalic and atraumatic. External auditory canals without erythema or edema bilaterally. No pharyngeal erythema or exudates. Skin: Warm and dry. No rashes or lesions noted. Neck: Full and painless range of motion. No cervical lymphadenopathy. Cardio: Regular rate and rhythm. No murmurs, gallops, or rubs. No lower extremity edema. No JVD. Pulmonary: No respiratory distress. No accessory muscle usage. Gastrointestinal: Soft, nontender, and nondistended in all 4 quadrants. Normoactive bowel sounds in all 4 quadrants. Genitourinary: No CVA tenderness. Musculoskeletal: Normal range of motion in joints throughout the body. No deformity or other signs of injury. Positive left Bay Neuro: Alert and oriented x4. Cranial nerves 2-12 grossly intact. No focal deficits appreciated. Results Reviewed Results Reviewed: Laboratory Tests 08/28/23 11:27 Rheumatoid Factor < 13.0 ASHA Screen POSITIVE A ASHA Titer 1:1280 H Assessment & Plan Assessment & Plan (1) Positive ASHA (antinuclear antibody): Code(s): R76.8 - Other specified abnormal immunological findings in serum (2) De Quervain's tenosynovitis, right: Code(s): M65.4 - Radial styloid tenosynovitis [de Quervain] Plan Ms. Kendrick active patient who appears to be in fair health, presents for evaluation of positive ASHA. Her ASHA is highly positive, 1:1280. Upon initial careful review of her history, available diagnostics and physical examination, I do not think this patient has an underlying connective tissue disease, or inflammatory process. However, I will do further analysis with additional blood work. I discussed with the patient signs and symptoms of connective tissue disease and inflammatory processes and she should call the office for evaluation if these were to occur. She will continue to follow up with ortho for her de Quervain's tenosynovitis. ! will see the patient again in 6 months for follow-up. If she continues without symptoms at that time she has the option to cancel the appointment. The patient agrees with our plan. I spent 35 minutes reviewing history, evaluating patient and documenting. Orders: Orders ASHA Reflex Titer and Pattern Today M65.4 - Radial styloid tenosynovitis [de Quervain], R76.8 - Other specified abnormal immunological findings in serum Anti Extractable Nuclear Ag Today M65.4 - Radial styloid tenosynovitis [de Quervain], R76.8 - Other specified abnormal immunological findings in serum Comprehensive Met. Panel Today M65.4 - Radial styloid tenosynovitis [de Quervain], R76.8 - Other specified abnormal immunological findings in serum Protein Electrophoresis, Serum Today M65.4 - Radial styloid tenosynovitis [de Quervain], R76.8 - Other specified abnormal immunological findings in serum UA w Microscopic Today M65.4 - Radial styloid tenosynovitis [de Quervain], R76.8 - Other specified abnormal immunological findings in serum Mitochondrial Antibody Today M65.4 - Radial styloid tenosynovitis [de Quervain], R76.8 - Other specified abnormal immunological findings in serum Beta-2 Glycoprotein Antibody Today M65.4 - Radial styloid tenosynovitis [de Quervain], R76.8 - Other specified abnormal immunological findings in serum Cardiolipin Antibodies Today M65.4 - Radial styloid tenosynovitis [de Quervain], R76.8 - Other specified abnormal immunological findings in serum Erythrocyte Sedimentation Rate Today M65.4 - Radial styloid tenosynovitis [de Quervain], R76.8 - Other specified abnormal immunological findings in serum Anti DNA DS Antibody Today M65.4 - Radial styloid tenosynovitis [de Quervain], R76.8 - Other specified abnormal immunological findings in serum Anti-Centromere B Antibodies Today M65.4 - Radial styloid tenosynovitis [de Quervain], R76.8 - Other specified abnormal immunological findings in serum Complement C3 Today M65.4 - Radial styloid tenosynovitis [de Quervain], R76.8 - Other specified abnormal immunological findings in serum Complement C4 Today M65.4 - Radial styloid tenosynovitis [de Quervain], R76.8 - Other specified abnormal immunological findings in serum Complete Blood Count Auto Diff Today M65.4 - Radial styloid tenosynovitis [de Quervain], R76.8 - Other specified abnormal immunological findings in serum C Reactive Protein Today M65.4 - Radial styloid tenosynovitis [de Quervain], R76.8 - Other specified abnormal immunological findings in serum Creatine Kinase Total Today M65.4 - Radial styloid tenosynovitis [de Quervain], R76.8 - Other specified abnormal immunological findings in serum Immunoglobulins,IgG IgA IgM Today M65.4 - Radial styloid tenosynovitis [de Quervain], R76.8 - Other specified abnormal immunological findings in serum Immunofixation Pnl, Serum Today M65.4 - Radial styloid tenosynovitis [de Quervain], R76.8 - Other specified abnormal immunological findings in serum Sjogren's Antibodies Today M65.4 - Radial styloid tenosynovitis [de Quervain], R76.8 - Other specified abnormal immunological findings in serum Scleroderma 70 Antibody Today M65.4 - Radial styloid tenosynovitis [de Quervain], R76.8 - Other specified abnormal immunological findings in serum Uric Acid Today M65.4 - Radial styloid tenosynovitis [de Quervain], R76.8 - Other specified abnormal immunological findings in serum Smooth Muscle Antibody Today M65.4 - Radial styloid tenosynovitis [de Quervain], R76.8 - Other specified abnormal immunological findings in serum Thyroid Peroxidase Antibodies Today M65.4 - Radial styloid tenosynovitis [de Quervain], R76.8 - Other specified abnormal immunological findings in serum Thyroglobulin Antibodies Today M65.4 - Radial styloid tenosynovitis [de Quervain], R76.8 - Other specified abnormal immunological findings in serum Lupus Anticoagulant Panel Today M65.4 - Radial styloid tenosynovitis [de Quervain], R76.8 - Other specified abnormal immunological findings in serum Coding Level of Care Code New Pt Level 4 (85582) Diagnoses Positive ASHA (antinuclear antibody) R76.8 De Quervain's tenosynovitis, right M65.4
[2023-10-31 14:45] VITALS: BP 146/80; PULSE 98; TEMP 36.5; O2SAT 99; BMI 24.3
== END 2023-10-31 15:23 | disposition home or self-care (01) ==
PROVIDERS: PCP Internal Medicine; Visit Provider Nurse Practitioner Family
DX: R76.8 Other specified abnormal immunological findings in serum (principal); M65.4 Radial styloid tenosynovitis [de Quervain]
CPT/HCPCS: 99204

== ENCOUNTER 2023-10-31 14:41 | Outpatient (REF) | payer BC, SELFPAY ==
[2023-10-31 15:53] LABS: MANUAL DIFF FLAG NO
[2023-10-31 16:13] LABS: Basophils Percent Auto 0.4 % (0-2); Eosinophils Absolute Auto 0.1 X10*3/uL (0.0-0.4); Hematocrit 40.4 % (37.0-47.0); Hemoglobin 13.9 g/dl (12.0-16.0); Imm Gran Abs Auto 0.02 X10*3/uL (0.00-0.03); Imm Gran Pct Auto 0.3 % (0.0-0.4); Lymphocytes Absolute Auto 1.7 X10*3/uL (1.2-4.9); Lymphocytes Percent Auto 23.1 % (20-40); Mean Corpuscular HGB Conc 34.4 g/dl (31.0-35.0); Mean Corpuscular Hemoglobin 31.4 pg (27.0-33.0); Mean Corpuscular Volume 91.2 fL (80.0-98.0); Mean Platelet Volume 10.9 fL (9.4-12.3); Monocytes Absolute Auto 0.5 X10*3/uL (0.1-1.2); Monocytes Percent Auto 6.9 % (2-11); Neutrophils Absolute Auto 4.9 x10*3/uL (2.0-8.3); Neutrophils Percent Auto 68.3 % (45-73); Platelet Count 269 X10*3/uL (160-400); Red Blood Count 4.43 X10*6/uL (4.20-5.50); Red Cell Distribution Width 12.2 % (11.0-16.0); White Blood Count 7.1 X10*3/uL (4.8-10.8)
[2023-10-31 16:43] LABS: Alanine Aminotransferase 13 U/L (0-31); Albumin Level 4.2 g/dL (3.5-5.0); Alkaline Phosphatase 63 U/L (39-117); Anion Gap 13 (12-20); Aspartate Amino Transferase 16 U/L (5-31); Bilirubin Total 0.2 mg/dL (0.0-1.0); Blood Urea Nitrogen 9 mg/dL (9-16); C Reactive Protein < 0.04 mg/dL (< or = 0.50); Calcium 9.6 mg/dL (8.4-10.2); Carbon Dioxide 27 mmol/L (22-29); Chloride 105 mmol/L (96-108); Estimated Glomerular Filt Rate > 60; Glucose Random 120 mg/dL (60-115); Potassium 3.6 mmol/L (3.3-5.1); Sodium 141 mmol/L (135-145); Total Protein 7.1 g/dL (6.5-8.0); Uric Acid 3.3 mg/dL (2.4-5.7)
[2023-10-31 17:03] LABS: Erythrocyte Sedimentation Rate 7 MM/HR (0-20)
[2023-10-31 18:14] LABS: Appearance Urine Clear; Color Urine Yellow; Glucose Urine UA Negative (Negative); Leukocyte Esterase Urine Negative (Negative); Nitrite Urine Negative (Negative); PH 7.5 (5.0-9.0); Specific Gravity - Urine 1.015 (1.005-1.025); Urine Blood Negative (Negative); Urine Ketones Negative (Negative); Urine Protein Negative (Neg-Trace)
[2023-10-31 18:28] LABS: Bacteria Urine None Seen (None Seen); Hyaline Casts Urine 0-2 /LPF (0-2); RBC Urine 0-2 /HPF (0-2); Squamous Epithelial Cell Urine 0-2 /HPF (0-2); WBC Urine 0-5 /HPF (0-5)
[2023-11-01 10:55] LABS: Thyroglobulin Antibodies <1 IU/mL (< or = 1); Thyroid Peroxidase Antibodies <1 IU/mL (<9)
[2023-11-01 13:48] LABS: IgA 224 mg/dL (47-310); IgG 879 mg/dL (600-1640); IgM 200 mg/dL (50-300)
[2023-11-01 16:19] LABS: Complement C3 87 mg/dL (83-193)
[2023-11-01 20:28] LABS: Cardiolipin IgG Ab <2.0 GPL-U/mL; Cardiolipin IgM Ab 6.6 MPL-U/mL
[2023-11-01 20:33] LABS: Anti-Centromere B Antibodies <1.0 NEG AI (<1.0 NEG)
[2023-11-01 20:48] LABS: Anti DNA DS Antibody <1 IU/mL; Antibody to SS-A Antigen <1.0 NEG AI (<1.0 NEG); Antibody to SS-B Antigen <1.0 NEG AI (<1.0 NEG); SM/Ribonucleoprotein Ab <1.0 NEG AI (<1.0 NEG); Scleroderma 70 Antibody <1.0 NEG AI (<1.0 NEG); Smith Protein <1.0 NEG AI (<1.0 NEG)
[2023-11-01 21:17] LABS: Prot Elec - Albumin 4.6 g/dL (3.8-4.8); Prot Elec - Alpha1 0.3 g/dL (0.2-0.3); Prot Elec - Alpha2 0.7 g/dL (0.5-0.9); Prot Elec - Beta 1 0.4 g/dL (0.4-0.6); Prot Elec - Beta 2 0.4 g/dL (0.2-0.5); Prot Elec - Gamma 0.7 g/dL (0.8-1.7); Prot Elec - Total Protein 7.1 g/dL (6.1-8.1)
[2023-11-05 07:14] LABS: Mitochondrial Antibodies NEGATIVE (NEGATIVE)
[2023-11-06 06:43] LABS: Smooth Muscle Antibody <20 U (<20)
[2023-11-06 11:24] LABS: Anti Nuclear Antibody Pattern Nuclear, Homogeneous; Anti Nuclear Antibody Screen POSITIVE (NEGATIVE)
[2023-11-07 06:03] LABS: PTT (LAC) Screen 32 sec (<=40)
[2023-11-09 14:29] LABS: Beta-2 Glycoprotein IgA <2.0 U/mL (<20.0); Beta-2 Glycoprotein IgG <2.0 U/mL (<20.0); Beta-2 Glycoprotein IgM 5.1 U/mL (<20.0)
== END 2023-10-31 14:42 | disposition home or self-care (01) ==
LOC: HO.LAB 14:41
PROVIDERS: PCP Internal Medicine; Visit Provider Nurse Practitioner Family
DX: R76.8 Other specified abnormal immunological findings in serum (principal); M65.4 Radial styloid tenosynovitis [de Quervain]
CPT/HCPCS: 36415; 80053; 81001; 82550; 82784; 84165; 84550; 85025; 85597; 85598; 85613; 85652; 85730; 86015; 86038; 86039; 86140; 86146; 86147; 86160; 86225; 86235; 86334; 86376; 86381; 86800

== ENCOUNTER 2023-11-20 10:00 | Outpatient (RCR) | payer BC, SELFPAY ==
--- NOTE | 2023-11-06 11:56 | MHC.PT.EP ---
[facility] [place] Office [place] Office [place] Office [address] Carlin Hoskins [address] [phone] F: [phone] F: [phone] F: [phone] F: [phone] Physical Therapy Plan of Care Date of Evaluation: 11/06/23 Date of Surgery: n/a Diagnosis: R knee pain Assessment: Patient is a 52 year old female presenting to PT with complaints of pain in her R knee. Pt reports onset of pain began Fall 2022 due to insidious onset. She presents today with impairments in pain, knee ROM, hip strength, muscle length. 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 Pt expresses custodial goal of reducing pain, and is motivated to work towards this in PT. Clinical presentation today is most consistent with signs and sx associated with R knee pain and pt will benefit from skilled PT 2 week x 5 weeks to address the following problems and impairments noted upon evaluation: pain, knee ROM, hip strength, muscle length. These problems limit the patient with the following functional activities: ambulating, stair negotiation, walking on inclines, transfers. The prescribed treatment plan of care is medically necessary. Co-morbidities of myofascial pain were identified and taken into considerations of plan of care. Pt was educated on HEP, role of PT, prognosis, POC. Frequency and Duration: The patient will be seen 2 x week x 5 weeks Short Term Goals: Pt will demonstrate symmetrical knee ROM in 3 weeks. Pt will demonstrate improved hip MMT strength by 1/3 grade in 3 weeks for improved lumbopelvic stability. Pt will demonstrate improved pain in 3 weeks to <2/10 on average. Research Study Assistant Goals: Pt will demonstrate improved LEFI score by 9 points in 5 weeks for improved functional mobility. Pt will demonstrate ability to negotiate stairs with min to no pain in 5 weeks for improved access to her home. Pt will demonstrate ability to transfer with min to no pain in 5 weeks for return to PLOF. Treatment Plan: Modalities to reduce pain, spasms and effusion. Manual therapy to restore motion and function. Therapeutic exercise to improve strength and flexibility. Neuromuscular re-education for posture and balance. Therapeutic activities to return to functional activities of daily living. Electronically signed by: Brenna Henry, PT, DPT, ATC Please sign and return to therapist. Thank you for your referral.
--- NOTE | 2023-12-20 07:34 | MHC.PT.DC ---
[facility] [place] Office [place] Office [place] Office [address] [phone] F: [phone] F: [phone] F: [phone] F: [phone] Physical Therapy Discharge Report Diagnosis: R knee pain Date of Surgery: n/a Date of Evaluation: 11/06/23 Date of Discharge: 12/20/23 Treatments to Date: 6 Cancellations to Date: 5 No Shows to Date: 0 Discharge Status: Patient Elected to Stop Discharge Summary: Pt has not attended skilled PT in >30 days and therefore to be d/c per policy. Electronically signed by: Brenna Henry, PT, DPT, ATC Please sign and return to therapist. Thank you for your referral.
== END 2023-12-20 07:34 | disposition home or self-care (01) ==
LOC: HO.PTCHIC 10:00
PROVIDERS: PCP Internal Medicine; Visit Provider Physical Medicine & Rehabilitation
DX: M22.2X1 Patellofemoral disorders, right knee (principal)
CPT/HCPCS: 97110; 97140; 97161

== ENCOUNTER 2023-12-04 09:09 | Outpatient (AMB) | payer BC, SELFPAY ==
--- NOTE | 2023-12-04 09:11 | MHC.OFFVIS ---
Vital Signs 12/04/23 09:16 Height 5 ft 6 in Weight 150 lb BMI 24.2 Intake Visit Reasons: New Prob - right knee pain Intake Note: Lauren is a 52 year old female who presents today for a follow up of her right knee pain. She states having soreness when going up the stairs. Patient expresses that PT didn't really help. Allergies Latex, Natural Rubber Allergy (Mild, Verified 12/04/23 09:20) Unknown Seasonal Allergies Allergy (Mild, Verified 12/04/23 09:20) Unknown HPI Comments Details: 1. De Quervain tenosynovitis. Injection done left 04/18/2023 and right 08/28/23. EMG bilateral upper extremities done normal. Less pain, but worse with movement. Still wearing left thumb spica. 2. right knee pain. Denies any specific injury. Worse with standing at work and would bending. Noticed some clicking. X-ray done showed some effusion. Patellar spur. The joint spaces were preserved. 3. ASHA positive. Seen by Rheumatology. Rest of blood work appears normal. 4. Was going to PT for the knee. Last session in October. Exercises given triggered tightness on right groin/buttocks and tightness on her lower back, tingling on her foot. She changed to doing a milder exercise. She does have chronic back pain, history of disc issues. No past injections. [place] MRI of lumbar, [place]. Has been time advil and tizanidine. 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 Patient was appropriately conversant and oriented. Good historian. MSK: No specific abnormalities found on inspection of the spine and all extremities. Tender on right SI joint and lateral hip. Tender on right groin. Lumbar ROM was full. Difficulty with hip range of motion and lying on her back due to pain. Straight-leg raising test negative. Although she complained of tingling on right leg. FABERE test positive right groin pain. Strength is 5/5 in all muscle groups tested. No increased tone noted. Neurological: Neurologic examination of the upper and lower extremities was nonfocal with intact sensation, muscle stretch reflexes and without focal motor deficits . Babinski was down going bilaterally. Clonus was negative. Gait is antalgic without loss of balance. Results Reviewed Results Reviewed: Laboratory Tests 08/28/23 11:27 Rheumatoid Factor < 13.0 ASHA Screen POSITIVE A ASHA Titer 1:1280 H EMG by or 06/13/2023 bilateral upper extremity IMPRESSION: 1. This is a normal study. 2. There is no electrodiagnostic evidence for median neuropathy, ulnar neuropathy, brachial plexopathy, or cervical radiculopathy. Ordering Physician: Nadiar Price MD Date of Service: 02/20/23 Procedure(s): XR wrist RT min 3V Accession Number(s): [id number] cc: Nadira Price MD~ X-RAY RIGHT WRIST X-RAY LEFT WRIST CLINICAL HISTORY: Enthesopathies, unspecified. COMPARISON: No relevant prior studies are available for comparison. TECHNIQUE: 3 views of each wrist. FINDINGS: Right wrist: No acute fractures or malalignment. Minimal joint space narrowing of the first carpometacarpal space. No erosions or chondrocalcinosis. No significant soft tissue abnormality. Left wrist: No acute fractures or malalignment. Minimal joint space narrowing of the first carpometacarpal space. No erosions or chondrocalcinosis. No significant soft tissue abnormality. XR/XR wrist RT min 3V IMPRESSION: 1. No acute fractures or subluxation. 2. Mild bilateral degenerative osteoarthrosis of the first carpometacarpal joint. 3. No erosions or chondrocalcinosis. Ordering Physician: Magy Beckham Date of Service: 07/18/23 Procedure(s): XR knee RT 3V Accession Number(s): [id number] cc: Nadira Price MD; Magy Beckham~ EXAMINATION: XR KNEE, RIGHT CLINICAL INFORMATION: Pain unspecified knee COMPARISON: None available. TECHNIQUE: Three views of the right knee. FINDINGS: Joint effusion. Minimal medial marginal and posterior patellar degenerative changes. Joint spaces are preserved. XR/XR knee RT 3V IMPRESSION: Joint effusion. Minimal degenerative changes. Assessment & Plan Assessment & Plan (1) Myofascial pain: Code(s): M79.18 - Myalgia, other site Category: Medical (2) Hip pain, right: Code(s): M25.551 - Pain in right hip Category: Medical (3) Lumbar degenerative disc disease: Code(s): M51.36 - Other intervertebral disc degeneration, lumbar region Category: Medical (4) De Quervain's tenosynovitis, bilateral: Code(s): M65.4 - Radial styloid tenosynovitis [de Quervain] Category: Medical (5) Knee pain: Code(s): M25.569 - Pain in unspecified knee Category: Medical Qualifiers: Chronicity: chronic Laterality: right Qualified Code(s): M25.561 - Pain in right knee; G89.29 - Other chronic pain (6) Positive ASHA (antinuclear antibody): Code(s): R76.8 - Other specified abnormal immunological findings in serum Category: Medical (7) Patellofemoral pain syndrome: Code(s): M22.2X9 - Patellofemoral disorders, unspecified knee Category: Medical Qualifiers: Laterality: right Qualified Code(s): M22.2X1 - Patellofemoral disorders, right knee Plan Multiple pain complaints but today we had to concentrate on her newer issue of right groin pain, hip pain and back pain. She does have history of lumbar disc degeneration, treated/diagnose [place] state prior to her moving here. This pain episodes started after physical therapy for knee. Exam suggestive of right groin pull in SI joint dysfunction. Again keeping in mind her past disc history. Low suspicion for fracture. Rule out hip joint arthritis. Evaluate disc spaces on lumbar x-ray. Getting lumbar and hip x-rays today. As of writing this note, lumbar and hip images reviewed independently. Loss of disc space at L4-5, most likely chronic. Question decreased joint space on right hip. Await final reading. For anti inflammation and more immediate pain control, we will start on short oral prednisone burst. Discussed side effects and precautions. Instructions given. Discussed that whether this is myofascial or lumbar disc, oral prednisone would help. Rest would help. We will consider further imaging such as MRI if does not get better with this treatment plan. To assess on next follow-up, or call sooner if needed. Other issues: 1. Multi joint pain and swelling, with positive ASHA. Seen by Rheumatology who were not concern for inflammatory or systemic arthritis. Other immunologic testing were normal. 2. Right knee pain. Gentle stretching at home as taught by PT. if tolerated. 3. Bilateral wrist pain, de Quervain tenosynovitis. Injection provided partial relief only. At this point will refer to Dr. Carlin for surgical options. Continue thumb spica splint. Assessment and plan discussed with patient, and patient was agreeable. All questions were answered thoroughly. Follow-up 4 weeks. Magy Greenberg MD, KERRI Board Certified, [place] [employer] and [employer] (ABPMR) Board Certified, [place] [employer] Electrodiagn[employer] (ABEM) Orders: Orders XR hip RT min 2V Today M25.551 - Pain in right hip XR lumbar spine 2-3V Today M54.9 - Dorsalgia, unspecified Referrals Orthopedics Referral M65.4 - Radial styloid tenosynovitis [de Quervain] Medications: New prednisone see taper instructions; 40 mg Daily for three days, 30 mg daily for three days, 20 mg daily for three days, 10 mg daily for three days 5 mg PO DIRECTED 60 tabs 0RF Coding Level of Care Code Est Pt Level 4 (40376) Diagnoses Myofascial pain M79.18 Hip pain, right M25.551 Lumbar degenerative disc disease M51.36 De Quervain's tenosynovitis, bilateral M65.4 Chronic pain of right knee M25.561; G89.29 Chronicity: chronic Laterality: right Positive ASHA (antinuclear antibody) R76.8 Patellofemoral pain syndrome of right knee M22.2X1 Laterality: right
[2023-12-04 09:16] VITALS: BMI 24.2
== END 2023-12-04 10:12 | disposition home or self-care (01) ==
PROVIDERS: PCP Internal Medicine; Visit Provider Physical Medicine & Rehabilitation
DX: M79.18 Myalgia, other site (principal); M25.551 Pain in right hip; M51.36 Other intervertebral disc degeneration, lumbar region; M65.4 Radial styloid tenosynovitis [de Quervain]; M25.561 Pain in right knee; G89.29 Other chronic pain; R76.8 Other specified abnormal immunological findings in serum; M22.2X1 Patellofemoral disorders, right knee
CPT/HCPCS: 99214

== ENCOUNTER 2023-12-04 09:09 | Outpatient (REF) | payer BC, SELFPAY ==
--- NOTE | ~2023-12-04 | XR_ITS ---
EXAMINATION: XR LUMBAR SPINE XR RIGHT HIP CLINICAL INFORMATION: Back pain, evaluate disc spaces. Right hip pain, evaluate DJD. COMPARISON: None available. TECHNIQUE: 3 views of the lumbar spine. 2 views of the right hip. Limited visualization due to bowel gas and body habitus. LUMBAR SPINE: Mild rightward curvature of the lumbar spine. Degenerative changes in the bilateral sacroiliac joints. Lumbar vertebral body heights are preserved. Facet arthritis in the aaf-lz-eopvg lumbar spine. Multilevel lumbar spondylosis with moderate loss of disc space height at L5-S1 and L4-L5. RIGHT HIP: Moderate degenerative changes with hypertrophic changes at the bilateral sacroiliac joints. Sclerotic focus overlies the upper medial aspect of the right iliac bone, possibly a bone island. Right hip alignment maintained. Mild narrowing with degenerative changes in the right hip. XR/XR hip RT min 2V IMPRESSION: 1. Multilevel lumbar spondylosis with moderate loss of disc space height at L5-S1 and L4-L5. 2. Facet arthritis in the aqa-fl-cumui lumbar spine. 3. Mild degenerative changes in the right hip. 4. Moderate degenerative changes bilateral sacroiliac joints.
--- NOTE | ~2023-12-04 | XR_ITS ---
EXAMINATION: XR LUMBAR SPINE XR RIGHT HIP CLINICAL INFORMATION: Back pain, evaluate disc spaces. Right hip pain, evaluate DJD. COMPARISON: None available. TECHNIQUE: 3 views of the lumbar spine. 2 views of the right hip. Limited visualization due to bowel gas and body habitus. LUMBAR SPINE: Mild rightward curvature of the lumbar spine. Degenerative changes in the bilateral sacroiliac joints. Lumbar vertebral body heights are preserved. Facet arthritis in the jiq-cj-cvgyw lumbar spine. Multilevel lumbar spondylosis with moderate loss of disc space height at L5-S1 and L4-L5. RIGHT HIP: Moderate degenerative changes with hypertrophic changes at the bilateral sacroiliac joints. Sclerotic focus overlies the upper medial aspect of the right iliac bone, possibly a bone island. Right hip alignment maintained. Mild narrowing with degenerative changes in the right hip. XR/XR lumbar spine 2-3V IMPRESSION: 1. Multilevel lumbar spondylosis with moderate loss of disc space height at L5-S1 and L4-L5. 2. Facet arthritis in the ooq-fd-jyvca lumbar spine. 3. Mild degenerative changes in the right hip. 4. Moderate degenerative changes bilateral sacroiliac joints.
== END 2023-12-04 09:10 | disposition home or self-care (01) ==
LOC: HO.HOSX 09:09
PROVIDERS: PCP Internal Medicine; Visit Provider Physical Medicine & Rehabilitation
DX: M25.551 Pain in right hip (principal); M79.18 Myalgia, other site; M51.36 Other intervertebral disc degeneration, lumbar region; M65.4 Radial styloid tenosynovitis [de Quervain]; M25.561 Pain in right knee; M22.2X1 Patellofemoral disorders, right knee; G89.29 Other chronic pain; R76.8 Other specified abnormal immunological findings in serum
CPT/HCPCS: 72100; 73502

== ENCOUNTER 2023-12-23 08:44 | Day surgery (SDC) | payer BC, SELFPAY ==
[2023-12-20 08:15] VITALS: BMI 22.8
--- NOTE | 2023-12-20 12:53 | P.CONAN_ITS ---
Documented by User: Carolann Spears NP 12/20/23 12:56 HPI - Anesthesia Eval Consult details Narrative: 52yo F for Colonoscopy PMFSH Active Problems Active Problems: All Active Problems Lumbar degenerative disc disease (Acute) Hip pain, right (Acute) Positive ASHA (antinuclear antibody) (Acute) De Quervain's tenosynovitis, right (Acute) Joint pain (Acute) Patellofemoral pain syndrome (Acute) De Quervain's tenosynovitis, bilateral (Acute) Knee pain (Acute) Bilateral tennis elbow (Acute) Arthritis of carpometacarpal (CMC) joint of left thumb (Acute) Myofascial pain (Acute) Shoulder pain, right (Acute) Numbness of right hand (Acute) De Quervain's tenosynovitis, left (Acute) Left wrist tendinitis (Acute) Dysplastic nevi (Acute) Right wrist tendinitis (Acute) Ovarian cyst (Acute) Hx of screening mammography (Acute) Normal pelvic exam (Acute) Annual physical exam (Acute) Chronic bilateral low back pain (Acute) Past Medical History Medical History Lumbar degenerative disc disease Arthritis of carpometacarpal (CMC) joint of left thumb Myofascial pain Shoulder pain, right Numbness of right hand Wrist pain, left Family History Family History Father Hypertension Prostate cancer Mother Hypertension Breast cancer Lung cancer Mental health disorder Paternal Grandmother Colon cancer Surgical History Surgical History H/O wisdom tooth extraction Social History Social History Household 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, 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, 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 Tobacco Use Status: Never used Tobacco e-Cigarette/Vaping Use: Never Used Use of substances other than those prescribed or required for medical reasons: No Are you DNR?: No Advance Directives: No Advance Directives Information Provided: Yes Current occupational status: employed 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 Cognitive needs: No Hearing needs: No Vision needs: Yes Meds Allergies Allergy/AdvReac Type Severity Reaction Status Date / Time Latex, Natural Rubber Allergy Unknown Unknown Verified 12/23/23 10:14 Seasonal Allergies Allergy Unknown Unknown Verified 12/23/23 10:14 Home Medications ?Medication ?Instructions ?Recorded ?Confirmed ?Last Taken ?Type Rita Allergy 180 mg PO Q24H seasonal allergies 12/23/23 12/23/23 Unknown Hi story Probiotic 12/23/23 Unknown History multivitamin 12/23/23 12/23/23 Unknown History Exam Height,Weight and Vital Signs: Height 5 ft 6 in Weight 63.957 kg Assessment and Plan Assessment Anesthesia Assessment: Chart Reviewed Documented by User: Janneth Burt MD 12/23/23 10:51 [facility] Past Medical History Medical History Lumbar degenerative disc disease Arthritis of carpometacarpal (CMC) joint of left thumb Myofascial pain Shoulder pain, right Numbness of right hand Wrist pain, left Family History Family History Father Hypertension Prostate cancer Mother Hypertension Breast cancer Lung cancer Mental health disorder Paternal Grandmother Colon cancer Family history of problems with anesthesia: No Surgical History Surgical History H/O wisdom tooth extraction History of Problems with Anesthesia: No Social History Social History Household 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, 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, 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 Tobacco Use Status: Never used Tobacco e-Cigarette/Vaping Use: Never Used Use of substances other than those prescribed or required for medical reasons: No Are you DNR?: No Advance Directives: No Advance Directives Information Provided: Yes Current occupational status: employed 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 Cognitive needs: No Hearing needs: No Vision needs: Yes Meds Allergies Allergy/AdvReac Type Severity Reaction Status Date / Time Latex, Natural Rubber Allergy Unknown Unknown Verified 12/23/23 10:14 Seasonal Allergies Allergy Unknown Unknown Verified 12/23/23 10:14 Home Medications ?Medication ?Instructions ?Recorded ?Confirmed ?Last Taken ?Type Rita Allergy 180 mg PO Q24H seasonal allergies 12/23/23 12/23/23 Unknown History Probiotic 12/23/23 Unknown History multivitamin 12/23/23 12/23/23 Unknown History Exam Airway Mallampati Class: II TM Dist: >3cm Neck ROM: Full Heart: rrr Lungs: cta Assessment and Plan Assessment Anesthesia Assessment: Anesthesia Plan Discussed Final Anesthetic Review Family History of Problems with Anesthesia: No History of Problems with Anesthesia: No NPO: Yes ASA Class: II Final Preanesthetic Review: No Changes in Pt Med Stat, Meds/Allgs Chart Reviewed and Consent Obtained/Reviewed Patient Risk: Low Procedure Risk: Low Anesthetic Plan Anesthetic Plan: MAC: Disposition: Standard PACU
[2023-12-23 10:15] VITALS: BMI 21.8
[2023-12-23 10:16] VITALS: BP 138/80; PULSE 63; RESP 16; TEMP 36.6; O2SAT 98
--- NOTE | 2023-12-23 10:35 | MHC.SHP ---
Pre-Procedural Eval Section A - 24 Hr Update-Section A only Date of Service: 12/23/23 The patient is an INPATIENT: No The patient has been examined within 24 hours of the surgical procedure. The History & Physical has been completed within 30 days and I have reviewed it.: No Section B - Complete if H&P > 30 days Chief Complaint: screening Relevant Family History (Specify if Yes): Yes Relevant Social History: None Present Medications: see Short Stay Collaborative assessment Medical History: Significant History (Arthritis of carpometacarpal (CMC) joint of left thumb Myofascial pain Shoulder pain, right Numbness of right hand Wrist pain, left) History of Previous Operations: Relevant previous surgery/procedure and date(s) (H/O wisdom tooth extraction) Allergies: Allergies Allergy/AdvReac Type Severity Reaction Status Date / Time Latex, Natural Rubber Allergy Unknown Unknown Verified 12/23/23 10:14 Seasonal Allergies Allergy Unknown Unknown Verified 12/23/23 10:14 Review of Systems Sugical H&P ROS: Negative: Constitution, Cardiovascular, Respiratory and Gastrointestinal Exam Surgical H&P Exam: Normal: Heart, Normal: Lungs, Normal: Extremities and Normal: Abdomen Plan Diagnosis/Plan: Unchanged I have reviewed the history and physical and performed a pertinent physical examination on my patient. No changes have occurred unless specified. Time Spent With Patient Time: Total time managing care of this patient today ____ minutes.
[2023-12-23] MEDS: Lactated Ringers 1,000 ML 100 ML IVCONT (10:41)
--- NOTE | 2023-12-23 12:02 | P.OPN-COLO_ITS ---
Colonoscopy Operative Note Operative Note Date of Service: 12/23/23 Narrative: COLONOSCOPY TILL CECUM WITH BIOPSIES Pre-op diagnosis: Colon cancer screening, family history of colon cancer (paternal GM in her 60's). Post-op diagnosis:? Colon polyp, Diverticulosis Endoscopist:? Terence Cherry MD Anesthesia:?MAC Consent: Indications for the procedure and potential complications of bleeding, perforation, reaction to medications and missed diagnosis were discussed with the patient and informed consent was obtained. Instrument: Olympus PCF H 190 L variable stiffness pediatric colonoscope Monitoring: Vital signs and clinical assessment, intermittent blood pressure monitoring, continuous EKG monitoring, Pulse oximetry and Carbon Dioxide monitoring were done throughout the procedure. Please see anesthesia flowsheet. Colon withdrawl time was 20 minutes. Procedure: The patient was placed in the left lateral decubitis position and pre-procedure medications were administered. After a digital rectal examination of the ano-rectum, the video colonoscope was inserted into the rectum and advanced through the colon to the cecum. The colonoscope was slowly withdrawn in a retrograde panoramic fashion and the colon mucosa was carefully examined including a retroflexed view of the rectum. Findings and interventions are described below. Procedure Difficulty: Colon was long and tortuous and there was some loop formation Findings: Terminal Ileum: Not evaluated Cecum: Normal Ascending Colon: Normal Transverse Colon: One 3-4 mm diminutive appearing polyp - removed with a cold biopsy Descending Colon: Moderate diverticulosis Sigmoid Colon: Moderate diverticulosis Rectum: Normal Ano-rectum: Normal Colon preparation: Good after copious irrigation. [place] Bowel Preparation Scale Right colon; 2 Transverse colon: 2 Left colon; 2 (0 = Unprepared colon segment with mucosa not seen due to solid stool that cannot be cleared. 1 = Portion of mucosa of the colon segment seen, but other areas of the colon segment not well seen due to staining, residual stool and/or opaque liquid. 2 = Minor amount of residual staining, small fragments of stool and/or opaque liquid, but mucosa of colon segment seen well. 3 = Entire mucosa of colon segment seen well with no residual staining, small fragments of stool or opaque liquid) Impression and Post Procedure Diagnosis: Colonoscopy Findings: One small diminutive appearing polyp was removed Moderate diverticulosis seen in the left colon Plan: I will send a letter with biopsy results. Repeat Colonoscopy in 5 years if polyps are adenomatous and due to positive family history. Above findings were reviewed with the patient and relevant handouts were given and the discharge area.
[2023-12-23 12:05] VITALS: BP 147/79; PULSE 66; RESP 16; TEMP 36.1; O2SAT 100
[2023-12-23 12:20] VITALS: BP 130/66; PULSE 58; RESP 15; O2SAT 99
[2023-12-23 12:33] VITALS: BP 139/80; PULSE 59; RESP 16; TEMP 36.2; O2SAT 99
== END 2023-12-23 13:10 | disposition home or self-care (01) ==
PROVIDERS: PCP Internal Medicine; Visit Provider Internal Medicine Gastroenterology
PROC: 0DJD8ZZ Inspection of Lower Intestinal Tract, Via Natural or Artificial Opening Endoscopic (ICD-10-PCS; CPT 45378; principal; 2023-12-23 11:00)
DX: Z12.11 Encounter for screening for malignant neoplasm of colon (principal); K63.5 Polyp of colon; K57.30 Diverticulosis of large intestine without perforation or abscess without bleeding; K56.2 Volvulus; Z80.0 Family history of malignant neoplasm of digestive organs
CPT/HCPCS: 45380; 88305; J2704

== ENCOUNTER → 2023-12-23 08:44 | Outpatient (BNV) | payer BC, SELFPAY | PROVIDERS: PCP Internal Medicine; Visit Provider Internal Medicine Gastroenterology | DX: Z12.11 Encounter for screening for malignant neoplasm of colon (principal); Z80.0 Family history of malignant neoplasm of digestive organs; K63.5 Polyp of colon; K57.30 Diverticulosis of large intestine without perforation or abscess without bleeding | CPT/HCPCS: 45380 ==

== ENCOUNTER 2024-01-02 10:13 | Outpatient (AMB) | payer BC, SELFPAY ==
--- NOTE | 2024-01-02 10:15 | MHC.OFFVIS ---
Vital Signs 01/02/24 10:21 Height 5 ft 6 in Weight 135 lb BMI 21.8 Intake Visit Reasons: Newprob-Lower back pain-follow up Intake Note: Lauren is a 53 year old female who presents today for a follow up of her right groin pain, hip pain and back pain. She does have history of lumbar disc degeneration, [place]ose [place] prior to her moving here. This pain episodes started after physical therapy for knee. She did complete her course of Prednisone, and has had improving pain. However, she explains that she is unsure if her pain was resolving on its own prior to taking or if the prednisone is what helped. She reports that she is having continued tingling in the right leg, she also explains that she is getting a funny bone sensation down the anteriomedial aspect of the garcia resulting in buckling of the knee. Allergies Latex, Natural Rubber Allergy (Unknown, Verified 12/23/23 10:14) Unknown Seasonal Allergies Allergy (Unknown, Verified 12/23/23 10:14) Unknown HPI Comments Details: Multiple pain complaints but most recent concern was right groin pain, hip pain and back pain. She does have history of lumbar disc degeneration, treated/diagnose [place] prior to her moving here. This pain episodes started after physical therapy for knee. Exam suggestive of right groin pull and SI joint dysfunction. Xrays showed loss of disc space at L4-5, most likely chronic. Mild degenerative changes in the right hip. Moderate degenerative changes bilateral sacroiliac joints. Other issues: 1. Multi joint pain and swelling, with positive ASHA. Seen by Rheumatology who were not concern for inflammatory or systemic arthritis. Other immunologic testing were normal. 2. Right knee pain. X-ray done showed some effusion. Patellar spur. The joint spaces were preserved. Gentle stretching at home as taught by PT. if tolerated. 3. Bilateral wrist pain, de Quervain tenosynovitis. Injection done left 04/18/2023 and right 08/28/23. EMG bilateral upper extremities done normal. Referred to Dr. Carlin for surgical options. Continued thumb spica splint. 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 Patient was appropriately conversant and oriented. Good historian. MSK: No specific abnormalities found on inspection of the spine and all extremities. Number tenderness on right groin or SI joint. But indicates pain is still on right lower back. Lumbar ROM was full. Right hip range of motion is improved. Straight-leg raising test negative. Although she complained of ongoing tingling on right leg. Fabere positive for back pain but not groin pain. Strength is 5/5 in all muscle groups tested. No increased tone noted. Neurological: Neurologic examination of the upper and lower extremities was nonfocal with intact sensation, muscle stretch reflexes and without focal motor deficits . Babinski was down going bilaterally. Clonus was negative. Gait is non antalgic without loss of balance. Results Reviewed Results Reviewed: Ordering Physician: Magy Beckham Date of Service: 12/04/23 Procedure(s): XR lumbar spine 2-3V Accession Number(s): [id number] cc: Nadira Price MD; Magy Beckham~ EXAMINATION: XR LUMBAR SPINE XR RIGHT HIP CLINICAL INFORMATION: Back pain, evaluate disc spaces. Right hip pain, evaluate DJD. COMPARISON: None available. TECHNIQUE: 3 views of the lumbar spine. 2 views of the right hip. Limited visualization due to bowel gas and body habitus. LUMBAR SPINE: Mild rightward curvature of the lumbar spine. Degenerative changes in the bilateral sacroiliac joints. Lumbar vertebral body heights are preserved. Facet arthritis in the exx-wk-cebce lumbar spine. Multilevel lumbar spondylosis with moderate loss of disc space height at L5-S1 and L4-L5. RIGHT HIP: Moderate degenerative changes with hypertrophic changes at the bilateral sacroiliac joints. Sclerotic focus overlies the upper medial aspect of the right iliac bone, possibly a bone island. Right hip alignment maintained. Mild narrowing with degenerative changes in the right hip. XR/XR lumbar spine 2-3V IMPRESSION: 1. Multilevel lumbar spondylosis with moderate loss of disc space height at L5-S1 and L4-L5. 2. Facet arthritis in the [id number]-pq-wkglw lumbar spine. 3. Mild degenerative changes in the right hip. 4. Moderate degenerative changes bilateral sacroiliac joints. Assessment & Plan Assessment & Plan (1) Lumbar degenerative disc disease: Code(s): M51.36 - Other intervertebral disc degeneration, lumbar region Category: Medical (2) Right lumbar radiculitis: Code(s): M54.16 - Radiculopathy, lumbar region Category: Medical Plan There is no more focal tenderness on right groin or SI joint. But continues to have paresthesias down right leg. History of lumbar degenerative disc. Patient had undergone adequate conservative management including [PT] without improvement of condition. It would be reasonable to obtain further imaging such as MRI. An MRI would help rule out any serious condition, guide treatment and assess prognosis for recovery. Discussed that based on MRI results, we may refer her to Pain Management for injections and if any severe stenosis or compression, referring her to Neurosurgery. Assessment and plan discussed with patient, and patient was agreeable. All questions were answered thoroughly. Magy Greenberg MD, KERRI Board Certified, [place] Board [employer] Medicine and Rehabilitation (ABPMR) Board Certified, [place] Board of Electrodiagnostic Medicine (ABEM) Orders: Orders MR lumbar spine wo con Today M51.36 - Other intervertebral disc degeneration, lumbar region, M54.16 - Radiculopathy, lumbar region Coding Level of Care Code Est Pt Level 4 (09054) Diagnoses Lumbar degenerative disc disease M51.36 Right lumbar radiculitis M54.16
[2024-01-02 10:21] VITALS: BMI 21.8
== END 2024-01-02 10:35 | disposition home or self-care (01) ==
PROVIDERS: PCP Internal Medicine; Visit Provider Physical Medicine & Rehabilitation
DX: M51.36 Other intervertebral disc degeneration, lumbar region (principal); M54.16 Radiculopathy, lumbar region
CPT/HCPCS: 99213

== ENCOUNTER → 2024-01-02 10:13 | Outpatient (BNVA) | payer BC, SELFPAY | PROVIDERS: PCP Internal Medicine; Visit Provider Physical Medicine & Rehabilitation ==

== ENCOUNTER 2024-01-08 10:52 | Outpatient (AMB) | payer BC, SELFPAY ==
--- NOTE | 2024-01-08 11:00 | A.OFFVIS_ITS ---
Intake Visit Reasons: Newprob-De Quervarias of left hand Intake Note: Lauren 53 yr old female presents today for a new problem visit for her De Quervarias of left hand. States she is having pain on her base of the thumb for the last week. Pain is worse with pulling her pants up and making her bed. She expresses that when she was getting something out of her bag her thumb got caught in the handle and she hear a crack. Hx of de-quervain injection with Dr. Beckham on 08/28/23 with some improvement. Allergies Latex, Natural Rubber Allergy (Unknown, Verified 01/08/24 11:04) Unknown Seasonal Allergies Allergy (Unknown, Verified 01/08/24 11:04) Unknown HPI HPI Newprob-De Quervarias of left hand: Details: Lauren is a 53 year old right hand dominant woman who presents to discuss her l eft De Quervain's tenosynovitis. She complains of left radial sided wrist pain, which has been present for ~16 months intermittently but worsened in the last week. Her pain is worse with pinching or gripping activities. She says ~1 week ago she was reaching for her bag and caught her thumb, she heard a crack in her thumb and her pain returned. She feels her pain also to the base of her thumb. She enjoys hiking & uses hiking poles for this, which causes her pain. She has a Hx of a left De Quervains injection by Dr. Beckham on 04/18/23, and a right side injection on 08/28/23. She says her right wrist is doing better following her injection. She has been wearing bilateral thumb braces, with some relief. These braces are stiffer than a comfort cool and she has been wearing this almost all the time, including at night. 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 Tobacco Use Status: Never used Tobacco e-Cigarette/Vaping Use: Never Used Current occupational status: employed 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 Cognitive needs: No Hearing needs: No Vision needs: Yes Review of Systems Const All systems reviewed & are unremarkable except as noted in HPI and below Physical Exam Const General: cooperative, healthy appearing and no acute distress Orientation/consciousness: patient oriented x3 HEENT Head: Yes normocephalic and Yes atraumatic Eyes EOM: EOMs intact bilaterally Resp Effort & Inspection: normal respiratory effort and able to speak in complete sentences Cardio Jugular venous distension: no JVD Skin General skin exam: turgor normal Rashes: no rashes Neuro General: patient oriented x3 Extrem Other: Evaluation of Upper Extremity: The patient is alert, oriented, and in no acute distress Neuro: Median, Ulnar, Radial nerves motor and sensory intact and sensation is normal to the tips of all digits Vascular: Cap refill brisk ROM: She can make a fist and extend all her digits No locking or catching Skin: No lacerations or abrasions. General: No Ecchymosis or swelling in the thumb, hand, or wrist No Erythema or evidence of infection. Tender over the 1st dorsal compartment Negative Bay test on the left today Minimal tenderness over the basal joint No tenderness over the MCP joint No tenderness over the a1 fanny Radiographs: Three views of the left wrist were taken on 02/20/2023. They show no fractures or dislocations. Looking at the basal joint, it actually looks quite good. Psych Appearance: grossly normal Affect: normal affect Attitude: cooperative Assessment & Plan Assessment & Plan (1) De Quervain's tenosynovitis, bilateral: Code(s): M65.4 - Radial styloid tenosynovitis [de Quervain] Category: Medical Plan Assessment & Plan: 1. Left De Quervain's tenosynovitis, S/P injection Date of injection: 04/18/[address] Beckham I educated her about this condition She appears to be doing well. I discussed operative and non-operative treatment options, and I am not recommending surgery at this time. I discussed activity modification, they should limit or avoid any heavy or repetitive pinching or gripping activities She was fitted for a comfort cool brace to wear with daily activity when out of the house I explained that I want her to start wearing braces less. She does not need to wear them to bed or when watching TV. She should limit thumb to daytime activities when symptomatic. She an follow up prn 2. Right De Quervain's tenosynovitis, S/P injection Date of injection: 08/28/[address] Beckham Sounds like it is doing well. Scribed for Belinda Carlin MD by Hiram Gregg, medical language specialist, on [ ] at [ ], EST. Coding Level of Care Code Est Pt Level 3 (54654) Diagnoses De Quervain's tenosynovitis, bilateral M65.4
== END 2024-01-08 11:54 | disposition home or self-care (01) ==
PROVIDERS: PCP Internal Medicine; Visit Provider Orthopaedic Surgery
DX: M65.4 Radial styloid tenosynovitis [de Quervain] (principal)
CPT/HCPCS: 99213

== ENCOUNTER → 2024-01-08 10:52 | Outpatient (BNVA) | payer BC, SELFPAY | PROVIDERS: PCP Internal Medicine; Visit Provider Orthopaedic Surgery ==

== ENCOUNTER 2024-01-30 13:29 | Outpatient (REF) | payer BC, SELFPAY ==
--- NOTE | ~2024-01-30 | MR_ITS ---
EXAMINATION: MR LUMBAR SPINE WITHOUT CONTRAST CLINICAL INFORMATION: 53-year-old with chronic low back pain with self-reported right leg and toe numbness. Intervertebral disc degeneration, lumbar region. Evaluate for possible right-sided disc herniation. COMPARISON: None available. TECHNIQUE: MRI of the lumbar spine was obtained using routine sequences without contrast. FINDINGS: CORONAL ALIGNMENT: Normal. SAGITTAL ALIGNMENT: Trace retrolisthesis at L1-L2, L2-L3 and L3-L4 asymmetric to the left with otherwise normal lumbosacral alignment. LUMBOSACRAL JUNCTION: Normal. There are 6 lumbar-like vertebral bodies, suggesting vertebral numeric variation. VERTEBRAL BODIES: Vertebral body heights are well-maintained. DISC SPACES AND ENDPLATES: There is severe disc space height loss at L4-L5 with loss of intradiscal T2-weighted signal at this level with probable intradiscal vacuum disc phenomenon, Schmorl's nodes and spondylosis. There is moderate to severe disc space height loss asymmetric to the right at L3-L4 with Schmorl's nodes, intradiscal degenerative signal changes and minor spondylosis. There is mild loss of intradiscal T2-weighted signal at L2-L3 without significant disc space height loss or spondylosis. There is minor anterior marginal endplate spurring at L5-S1. SPINAL CANAL: A 1.3 cm Tarlov cyst in the sacral canal at S2 on the right. BONE MARROW: There are mixed type I and type II degenerative bone marrow signal changes seen along the endplates at L4-L5. There is a 9 mm well-circumscribed ovoid focus of signal loss in the right iliac bone, statistically likely a bone island. No suspicious marrow replacing process or bone marrow edema. CONUS MEDULLARIS: Terminates at T12-L1. Morphology and signal is normal. INTRADURAL NERVE ROOTS: Within normal limits. L5-S1: No significant disc bulge or herniation. Moderate bilateral facet joint arthropathy noted without significant canal or neural foraminal stenosis. L4-L5: Concentric disc bulging is noted with a superimposed central to right subarticular extruded disc herniation with slight caudal migration with indentation of the ventral thecal sac asymmetric to the right and probable encroachment on the right L5 nerve root in the lateral recess. Ligamentum flavum thickening noted with [id number]-[id number]-[id number] facet joint hypertrophic degenerative changes with mild central canal stenosis and seze-rf-egppjuhe bilateral subarticular recess stenosis with some encroachment on the left L5 nerve root in the subarticular zone as well. There is mild foraminal narrowing bilaterally. L3-L4: Retrolisthesis, disc bulging and superimposed central to right paramedian extruded disc herniation with caudal migration and flattening of the ventral dural sac asymmetric to the right. Ligamentum flavum thickening is noted with gxgg-se-dpywyleo facet joint arthropathy and mild central canal stenosis. There is narrowing of the subarticular zones, right more than left with possible minimal encroachment on the L4 nerve roots bilaterally, right more than left. Minor foraminal narrowing noted bilaterally. L2-L3: Mild disc bulging is noted with a left-sided foraminal/extraforaminal extruded disc herniation which probably contacts the extraforaminal left L2 nerve root. There is mild facet joint arthropathy bilaterally without significant canal stenosis. Mild foraminal narrowing noted on the left. L1-L2: Mild retrolisthesis with a small left subarticular to inferior foraminal disc protrusion without neural impingement. There is a right subarticular to foraminal disc herniation with an annular fissure, which contacts the extraforaminal right L1 nerve root. There is no significant facet joint arthropathy or canal stenosis. Small perineural cyst in the left neural foramen. Poan-hi-rgnvkzxj right-sided foraminal stenosis is noted. PARAVERTEBRAL AND INCLUDED EXTRASPINAL SOFT TISSUES: The visualized paravertebral soft tissues and included retroperitoneal structures are unremarkable within the limitations of the exam. MR/MR lumbar spine wo con IMPRESSION: 1. Multilevel discogenic degenerative changes between L1-L2 and L4-L5 inclusive with multilevel spondylosis, disc bulging and disc herniations as detailed by level above. 2. Mild central canal stenosis at L4-L5 and L3-L4 with lateral recess compromise, right more than left at L4-L5 and bilaterally at L3-L4 with possible encroachment on the L4 nerve roots bilaterally, right more than left at L3-L4 and on the L5 nerve roots, right more than left at L4-L5. 3. Multilevel bilateral facet joint arthropathy with predominantly mild degrees of neural foraminal narrowing as described above. 4. Right subarticular to foraminal disc herniation at L1-L2 which contacts the extraforaminal right L1 nerve root. Left-sided foraminal/extraforaminal extruded disc herniation at L2-L3 likely contacting the extraforaminal left L2 nerve root. 5. A 9 mm focus of signal loss in the right iliac bone which, statistically, is likely a bone island or benign fibro-osseous lesion in the absence of any history of previous or underlying malignancy.
== END 2024-01-30 13:30 | disposition home or self-care (01) ==
LOC: HO.MRI 13:29
PROVIDERS: PCP Internal Medicine; Visit Provider Physical Medicine & Rehabilitation
DX: M51.36 Other intervertebral disc degeneration, lumbar region (principal); M54.16 Radiculopathy, lumbar region
CPT/HCPCS: 72148

== ENCOUNTER 2024-02-21 11:56 | Outpatient (AMB) | payer BC, SELFPAY ==
--- NOTE | 2024-02-21 11:57 | A.OFFVIS_ITS ---
Intake Visit Reasons: OV- Lumbar Spine MRI review Intake Note: Terrie is a 53 year old female who presents to the office today for her Lumbar Spine MRI review. Allergies Latex, Natural Rubber Allergy (Unknown, Verified 02/21/24 11:57) Unknown Seasonal Allergies Allergy (Unknown, Verified 02/21/24 11:57) Unknown HPI Comments Details: Multiple pain complaints but most recent concern was right groin pain, hip pain and back pain. She does have history of lumbar disc degeneration, [place]/diagnose [place] prior to her moving here. This pain episodes started after physical therapy for knee. Exam suggestive of right groin pull and SI joint dysfunction. Xrays showed loss of disc space at L4-5, most likely chronic. Mild degenerative changes in the right hip. Moderate degenerative changes bilateral sacroiliac joints. We have treated her with oral steroid. MRI obtained to be discussed today. Pain appears to be less severe today, patient appears more comfortable. She says pain and numbness come and go. Continues to have tingling down to foot. Starting to have aching on upper back which usually herald a more severe spasming of lower back. Other issues: 1. Multi joint pain and swelling, with positive ASHA. Seen by Rheumatology who were not concern for inflammatory or systemic arthritis. Other immunologic testing were normal. 2. Right knee pain. X-ray done showed some effusion. Patellar spur. The joint spaces were preserved. Gentle stretching at home as taught by PT. if tolerated. 3. Bilateral wrist pain, de Quervain tenosynovitis. Injection done left 04/18/2023 and right 08/28/23. EMG bilateral upper extremities done normal. Referred to Dr. Carlin for surgical options. Continued thumb spica splint. 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 Patient was appropriately conversant and oriented. Good historian. MSK: No specific abnormalities found on inspection of the spine and all extremities. Lumbar ROM was full. Right hip range of motion is improved. Straight-leg raising test negative. Strength is 5/5 in all muscle groups tested. No increased tone noted. Neurological: Neurologic examination of the upper and lower extremities was nonfocal with intact sensation, muscle stretch reflexes and without focal motor deficits . Babinski was down going bilaterally. Clonus was negative. Gait is non antalgic without loss of balance. No footdrop. Results Reviewed Results Reviewed: Ordering Physician: Magy Beckham Date of Service: 01/30/24 Procedure(s): MR lumbar spine wo con Accession Number(s): [id number] cc: Nadira Price MD; Magy Beckham~ EXAMINATION: MR LUMBAR SPINE WITHOUT CONTRAST CLINICAL INFORMATION: 53-year-old with chronic low back pain with self-reported right leg and toe numbness. Intervertebral disc degeneration, lumbar region. Evaluate for possible right-sided disc herniation. COMPARISON: None available. TECHNIQUE: MRI of the lumbar spine was obtained using routine sequences without contrast. FINDINGS: CORONAL ALIGNMENT: Normal. SAGITTAL ALIGNMENT: Trace retrolisthesis at L1-L2, L2-L3 and L3-L4 asymmetric to the left with otherwise normal lumbosacral alignment. LUMBOSACRAL JUNCTION: Normal. There are 6 lumbar-like vertebral bodies, suggesting vertebral numeric variation. VERTEBRAL BODIES: Vertebral body heights are well-maintained. DISC SPACES AND ENDPLATES: There is severe disc space height loss at L4-L5 with loss of intradiscal T2-weighted signal at this level with probable intradiscal vacuum disc phenomenon, Schmorl's nodes and spondylosis. There is moderate to severe disc space height loss asymmetric to the right at L3-L4 with Schmorl's nodes, intradiscal degenerative signal changes and minor spondylosis. There is mild loss of intradiscal T2-weighted signal at L2-L3 without significant disc space height loss or spondylosis. There is minor anterior marginal endplate spurring at L5-S1. SPINAL CANAL: A 1.3 cm Tarlov cyst in the sacral canal at S2 on the right. BONE MARROW: There are mixed type I and type II degenerative bone marrow signal changes seen along the endplates at L4-L5. There is a 9 mm well-circumscribed ovoid focus of signal loss in the right iliac bone, statistically likely a bone island. No suspicious marrow replacing process or bone marrow edema. CONUS MEDULLARIS: Terminates at T12-L1. Morphology and signal is normal. INTRADURAL NERVE ROOTS: Within normal limits. L5-S1: No significant disc bulge or herniation. Moderate bilateral facet joint arthropathy noted without significant canal or neural foraminal stenosis. L4-L5: Concentric disc bulging is noted with a superimposed central to right subarticular extruded disc herniation with slight caudal migration with indentation of the ventral thecal sac asymmetric to the right and probable encroachment on the right L5 nerve root in the lateral recess. Ligamentum flavum thickening noted with gszg-ep-wlvhyglz facet joint hypertrophic degenerative changes with mild central canal stenosis and vfvh-rr-[id number] bilateral subarticular recess stenosis with some encroachment on the left L5 nerve root in the subarticular zone as well. There is mild foraminal narrowing bilaterally. L3-L4: Retrolisthesis, disc bulging and superimposed central to right paramedian extruded disc herniation with caudal migration and flattening of the ventral dural sac asymmetric to the right. Ligamentum flavum thickening is noted with oswd-dt-[id number] facet joint arthropathy and mild central canal stenosis. There is narrowing of the subarticular zones, right more than left with possible minimal encroachment on the L4 nerve roots bilaterally, right more than left. Minor foraminal narrowing noted bilaterally. L2-L3: Mild disc bulging is noted with a left-sided foraminal/extraforaminal extruded disc herniation which probably contacts the extraforaminal left L2 nerve root. There is mild facet joint arthropathy bilaterally without significant canal stenosis. Mild foraminal narrowing noted on the left. L1-L2: Mild retrolisthesis with a small left subarticular to inferior foraminal disc protrusion without neural impingement. There is a right subarticular to foraminal disc herniation with an annular fissure, which contacts the extraforaminal right L1 nerve root. There is no significant facet joint arthropathy or canal stenosis. Small perineural cyst in the left neural foramen. Vkgn-je-gqahcqdr right-sided foraminal stenosis is noted. PARAVERTEBRAL AND INCLUDED EXTRASPINAL SOFT TISSUES: The visualized paravertebral soft tissues and included retroperitoneal structures are unremarkable within the limitations of the exam. MR/MR lumbar spine wo con IMPRESSION: 1. Multilevel discogenic degenerative changes between L1-L2 and L4-L5 inclusive with multilevel spondylosis, disc bulging and disc herniations as detailed by level above. 2. Mild central canal stenosis at L4-L5 and L3-L4 with lateral recess compromise, right more than left at L4-L5 and bilaterally at L3-L4 with possible encroachment on the L4 nerve roots bilaterally, right more than left at L3-L4 and on the L5 nerve roots, right more than left at L4-L5. 3. Multilevel bilateral facet joint arthropathy with predominantly mild degrees of neural foraminal narrowing as described above. 4. Right subarticular to foraminal disc herniation at L1-L2 which contacts the extraforaminal right L1 nerve root. Left-sided foraminal/extraforaminal extruded disc herniation at L2-L3 likely contacting the extraforaminal left L2 nerve root. 5. A 9 mm focus of signal loss in the right iliac bone which, statistically, is likely a bone island or benign fibro-osseous lesion in the absence of any history of previous or underlying malignancy. Assessment & Plan Assessment & Plan (1) Right lumbar radiculitis: Code(s): M54.16 - Radiculopathy, lumbar region Category: Medical (2) Lumbar degenerative disc disease: Code(s): M51.36 - Other intervertebral disc degeneration, lumbar region Category: Medical Plan Looked at films together. Shows sizable extruded disc L3-4 level migrating caudally. I think this is the cause of her intermittent chronic pain, it could be causing referral pain and paresthesias down the right leg as well. I think at this point it is reasonable to get the opinion of our colleagues from Neurosurgery, get her options for surgery. In the meantime referring her back to physical therapy to work on core and lumbar strength. If she decides against surgery, then we could consider referral to pain management for injection. Assessment and plan discussed with patient, and patient was agreeable. All questions were answered thoroughly. We will touch base after patient sees Neurosurgery. Magy Greenberg MD, KERRI Board Certified, [place] [employer] and Rehabilitation (ABPMR) Board Certified, [place] Board [employer] Electro[employer] (ABEM) Orders: Orders PT Evaluation and Treatment Today M51.36 - Other intervertebral disc degeneration, lumbar region, M54.16 - Radiculopathy, lumbar region Referrals Neurosurgery Referral M51.36 - Other intervertebral disc degeneration, lumbar region, M54.16 - Radiculopathy, lumbar region Coding Level of Care Code Est Pt Level 4 (03029) Diagnoses Right lumbar radiculitis M54.16 Lumbar degenerative disc disease M51.36
== END 2024-02-21 12:30 | disposition home or self-care (01) ==
PROVIDERS: PCP Internal Medicine; Visit Provider Physical Medicine & Rehabilitation
DX: M54.16 Radiculopathy, lumbar region (principal); M51.36 Other intervertebral disc degeneration, lumbar region
CPT/HCPCS: 99213

== ENCOUNTER → 2024-02-21 11:56 | Outpatient (BNVA) | payer BC, SELFPAY | PROVIDERS: PCP Internal Medicine; Visit Provider Physical Medicine & Rehabilitation ==

== ENCOUNTER 2024-03-09 07:17 | Outpatient (REF) | payer BC, SELFPAY ==
[2024-03-09 10:11] LABS: MANUAL DIFF FLAG NO
[2024-03-09 10:21] LABS: Basophils Percent Auto 0.8 % (0-2); Eosinophils Absolute Auto 0.2 X10*3/uL (0.0-0.4); Eosinophils Percent Auto 3.1 % (0-4); Hematocrit 41.5 % (37.0-47.0); Hemoglobin 14.2 g/dl (12.0-16.0); Imm Gran Abs Auto 0.01 X10*3/uL (0.00-0.03); Imm Gran Pct Auto 0.2 % (0.0-0.4); Lymphocytes Percent Auto 38.2 % (20-40); Mean Corpuscular HGB Conc 34.2 g/dl (31.0-35.0); Mean Corpuscular Hemoglobin 31.8 pg (27.0-33.0); Mean Platelet Volume 11.4 fL (9.4-12.3); Monocytes Absolute Auto 0.5 X10*3/uL (0.1-1.2); Monocytes Percent Auto 8.8 % (2-11); Neutrophils Absolute Auto 2.5 x10*3/uL (2.0-8.3); Neutrophils Percent Auto 48.9 % (45-73); Platelet Count 258 X10*3/uL (160-400); Red Blood Count 4.46 X10*6/uL (4.20-5.50); Red Cell Distribution Width 12.1 % (11.0-16.0); White Blood Count 5.1 X10*3/uL (4.8-10.8)
[2024-03-09 10:37] LABS: Estimated Average Glucose 100 mg/dL; Hemoglobin A1c % 5.1 % (<6.0)
[2024-03-09 10:42] LABS: Alanine Aminotransferase 14 U/L (0-31); Albumin Level 4.3 g/dL (3.5-5.0); Alkaline Phosphatase 53 U/L (39-117); Anion Gap 12 (12-20); Aspartate Amino Transferase 17 U/L (5-31); Bilirubin Total 0.4 mg/dL (0.0-1.0); Blood Urea Nitrogen 8 mg/dL (9-16); Calcium 9.4 mg/dL (8.4-10.2); Carbon Dioxide 27 mmol/L (22-29); Chloride 105 mmol/L (96-108); Cholesterol 236 mg/dL (<200); Estimated Glomerular Filt Rate > 60; Glucose Fasting 92 mg/dL (60-99); HDL Cholesterol 80 mg/dL (>40); LDL Cholesterol Calculated 146 mg/dL (<100); Potassium 3.8 mmol/L (3.3-5.1); Sodium 140 mmol/L (135-145); Total Protein 6.9 g/dL (6.5-8.0); Triglycerides 52 mg/dL (<150)
[2024-03-09 10:59] LABS: TSH reflex Free T4 1.88 uIU/mL (0.32-4.0)
[2024-03-09 11:13] LABS: Creatinine Urine 44.13 mg/dL; Microalbum/Creatinine Ratio Ur 156.3 ug/mg cr (<30)
== END 2024-03-09 07:18 | disposition home or self-care (01) ==
LOC: HO.HMGCLDS 07:17
PROVIDERS: PCP Internal Medicine; Visit Provider Internal Medicine
DX: Z00.00 Encounter for general adult medical examination without abnormal findings (principal); R73.9 Hyperglycemia, unspecified
CPT/HCPCS: 36415; 80053; 80061; 82043; 82570; 83036; 84443; 85025

== ENCOUNTER 2024-03-09 09:58 | Outpatient (AMB) | payer BC, SELFPAY ==
--- NOTE | 2024-03-09 10:18 | A.SPINEOV_ITS ---
Intake Visit Reasons: disc herniation Intake Note: Ms. Booth is here today c/o low back pain that radiates to the legs. 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 She is a very nice 53-year-old female who presents to the office today for evaluation of pain in her back as well as pain in her right hip, right buttock with occasional feelings of weakness in her leg giving out. She also will get tingling in her foot from time to time. If she is having a bad flare-up sometimes it will feel like she has severe pain radiating down her whole right leg. At 1 point a few years back when she was in [place] she had a flare-up so bad center to the hospital. Surgery was being considered at that time but because she was reasonably functional, they sent her to physical therapy and she improved. She takes tizanidine if the pain is really bad. She has been doing physical therapy to treat some hip issues and she feels that may have given her some pain into her right groin. Her pain can be aggravated with walking, or prolonged sitting. Her best position is standing. She has not had any cortisone injections, chiropractic, acupuncture etc.. She continues to work, and enjoys a relatively active lifestyle although she has curtailed some activities such as bike riding because she is afraid it may make things worse. PMH: She is otherwise healthy, she has de Quervain tenosynovitis in both hands Social hx: She has not smoke, drink or use any recreational drugs Medications: Rita, probiotic and tizanidine Allergies: None Physical exam: She has full strength of bilateral lower extremities, normal gait and reflexes Imaging review: There is a lumbar MRI done at [facility] showing multilevel degenerative disc disease, but primarily at L4-5 she has significant disc collapse and bilateral lateral recess stenosis. There is some moderate degeneration at L3-4 as well. The report suggests there is a lateral/foraminal disc herniation on the right at L1-2 but I do not see any evidence of nerve impingement at that level. Impression: 53-year-old female presenting with chronic back issues including chronic centralized back pain from time to time with flare-ups and an intermittent pain that goes into her right groin, right buttock into right poste rior thigh with occasional feelings like her leg will give out and her foot will be tingling. I suspect these issues are coming from L4-5 with the severely collapsed disc and I can see nerve compression in both lateral recess but worse on the right. We discussed the natural history of degenerative disc disease and the treatment options. Right now she is very functional and the pain is really intermittent in his not affecting her overall quality of life so I told her that surgery is generally reserve people who have gotten to the point where the pain is interfering with her daily activities and the other treatment options like injections, physical therapy, chiropractic etc. have not helped. She is currently setting up a physical therapy session for her low back and I think that is very reasonable. She was curious about cortisone injections so I put a referral in for . She does not think she wants 1 right now but would like to just discuss it in case things get worse down the road. I would like to see her back in 3 months just to re-evaluate and see how things are going. Thank you for allowing us to care for your patient. The total time spent with this visit with this patient was 45 minutes reviewing history, physical exam, lumbar imaging review, and implementation of treatment plan or further diagnostic testing Yao Zhao MD,PhD [facility] Orders: Referrals Pain Management Referral M51.36 - Other intervertebral disc degeneration, lumbar region Coding Level of Care Code New Pt Level 4 (65949) Diagnoses Lumbar degenerative disc disease M51.36
== END 2024-03-09 11:12 | disposition home or self-care (01) ==
PROVIDERS: PCP Internal Medicine; Referring Provider Physical Medicine & Rehabilitation; Visit Provider Physician Assistant
DX: M51.36 Other intervertebral disc degeneration, lumbar region (principal)
CPT/HCPCS: 99204

== ENCOUNTER 2024-03-13 09:16 | Outpatient (AMB) | payer BC, SELFPAY ==
--- NOTE | 2024-03-13 09:36 | A.OFFVIS_ITS ---
Vital Signs 03/13/24 09:37 Height 5 ft 6 in Weight 134 lb BMI 21.6 BP 145/70 H Blood Pressure Location Lt brachial Position Sitting Respiration 14 Pulse 62 Pulse Source Pulse Oximeter Pulse Oximetry (%) 99 Oxygen Delivery Method Room Air Intake Visit Reasons: L4-L5 disc degeneration, discuss injection Allergies Latex, Natural Rubber Allergy (Unknown, Verified 03/16/24 13:32) Unknown Seasonal Allergies Allergy (Unknown, Verified 03/16/24 13:32) Unknown Medication List - Last Reconciled 03/13/24 by Edilma Miller LPN [Rita Allergy 180 mg PO Q24H] [multivitamin ] [Probiotic ] tizanidine 2 mg PO Q8H PRN HPI HPI L4-L5 disc degeneration, discuss injection: Details: 53-year-old female who presents today to the office for an evaluation of L4-L5 disc degenerations. The pain is described as mostly in the right groin and right leg. It is described in hip and sensation in the groin and lower back and numbness and tingling in the right leg. It is usually between 3-5/10 intensity. It does not interfere with the daily activities, but sometimes it does affect her sleep. She feels like her leg gave out when she is walking. Her pain can be aggravated with walking or prolonged sitting. Her best position is standing. She has not had any cortisone injections or acupuncture, etc. She has been doing chiropractor manipulation since the age of 16. She was hospitalized for back pain in 2006. She has taken gabapentin for about a year. She is taking tizanidine for severe pain. She has been doing physical therapy this year to treat some hip issues, and she feels that may have given her some knee pain and pain in her right groin. She stopped physical therapy and has been continuing home exercises. She is scheduled for an evaluation for physical therapy. She had discussed surgical candidacy with an orthopedic surgeon, but she is not an ideal candidate. 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, 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 Tobacco Use Status: Never used Tobacco e-Cigarette/Vaping Use: Never Used service: No Current occupational status: employed 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 Alert and oriented. Mood and affect appropriate. Follows and participates in conversation appropriately. Respiratory effort is unlabored. Able to transition from sit to stand unassisted. Ambulates with bilaterally normal heel strike and toe off. Results Reviewed Results Reviewed: 01/30/24: MR LUMBAR SPINE WITHOUT CONTRAST FINDINGS: CORONAL ALIGNMENT: Normal. SAGITTAL ALIGNMENT: Trace retrolisthesis at L1-L2, L2-L3 and L3-L4 asymmetric to the left with otherwise normal lumbosacral alignment. LUMBOSACRAL JUNCTION: Normal. There are 6 lumbar-like vertebral bodies, suggesting vertebral numeric variation. VERTEBRAL BODIES: Vertebral body heights are well-maintained. DISC SPACES AND ENDPLATES: There is severe disc space height loss at L4-L5 with loss of intradiscal T2-weighted signal at this level with probable intradiscal vacuum disc phenomenon, Schmorl's nodes and spondylosis. There is moderate to severe disc space height loss asymmetric to the right at L3-L4 with Schmorl's nodes, intradiscal degenerative signal changes and minor spondylosis. There is mild loss of intradiscal T2-weighted signal at L2-L3 without significant disc space height loss or spondylosis. There is minor anterior marginal endplate spurring at L5-S1. SPINAL CANAL: A 1.3 cm Tarlov cyst in the sacral canal at S2 on the right. BONE MARROW: There are mixed type I and type II degenerative bone marrow signal changes seen along the endplates at L4-L5. There is a 9 mm well-circumscribed ovoid focus of signal loss in the right iliac bone, statistically likely a bone island. No suspicious marrow replacing process or bone marrow edema. CONUS MEDULLARIS: Terminates at T12-L1. Morphology and signal is normal. INTRADURAL NERVE ROOTS: Within normal limits. L5-S1: No significant disc bulge or herniation. Moderate bilateral facet joint arthropathy noted without significant canal or neural foraminal stenosis. L4-L5: Concentric disc bulging is noted with a superimposed central to right subarticular extruded disc herniation with slight caudal migration with indentation of the ventral thecal sac asymmetric to the right and probable encroachment on the right L5 nerve root in the lateral recess. Ligamentum flavum thickening noted with erjc-ym-gaexcmgd facet joint hypertrophic degenerative changes with mild central canal stenosis and vsol-ek-cpfocctj bilateral subarticular recess stenosis with some encroachment on the left L5 nerve root in the subarticular zone as well. There is mild foraminal narrowing bilaterally. L3-L4: Retrolisthesis, disc bulging and superimposed central to right paramedian extruded disc herniation with caudal migration and flattening of the ventral dural sac asymmetric to the right. Ligamentum flavum thickening is noted with japy-fy-esoomrno facet joint arthropathy and mild central canal stenosis. There is narrowing of the subarticular zones, right more than left with possible minimal encroachment on the L4 nerve roots bilaterally, right more than left. Minor foraminal narrowing noted bilaterally. L2-L3: Mild disc bulging is noted with a left-sided foraminal/extraforaminal extruded disc herniation which probably contacts the extraforaminal left L2 nerve root. There is mild facet joint arthropathy bilaterally without significant canal stenosis. Mild foraminal narrowing noted on the left. L1-L2: Mild retrolisthesis with a small left subarticular to inferior foraminal disc protrusion without neural impingement. There is a right subarticular to foraminal disc herniation with an annular fissure, which contacts the extraforaminal right L1 nerve root. There is no significant facet joint arthropathy or canal stenosis. Small perineural cyst in the left neural foramen. Bril-gd-vmdqrnxe right-sided foraminal stenosis is noted. PARAVERTEBRAL AND INCLUDED EXTRASPINAL SOFT TISSUES: The visualized paravertebral soft tissues and included retroperitoneal structures are unremarkable within the limitations of the exam. IMPRESSION: 1. Multilevel discogenic degenerative changes between L1-L2 and L4-L5 inclusive with multilevel spondylosis, disc bulging and disc herniations as detailed by level above. 2. Mild central canal stenosis at L4-L5 and L3-L4 with lateral recess compromise, right more than left at L4-L5 and bilaterally at L3-L4 with possible encroachment on the L4 nerve roots bilaterally, right more than left at L3-L4 and on the L5 nerve roots, right more than left at L4-L5. 3. Multilevel bilateral facet joint arthropathy with predominantly mild degrees of neural foraminal narrowing as described above. 4. Right subarticular to foraminal disc herniation at L1-L2 which contacts the extraforaminal right L1 nerve root. Left-sided foraminal/extraforaminal extruded disc herniation at L2-L3 likely contacting the extraforaminal left L2 nerve root. 5. A 9 mm focus of signal loss in the right iliac bone which, statistically, is likely a bone island or benign fibro-osseous lesion in the absence of any history of previous or underlying malignancy. 12/04/23: XR LUMBAR SPINE, XR RIGHT HIP Findings: LUMBAR SPINE: Mild rightward curvature of the lumbar spine. Degenerative changes in the bilateral sacroiliac joints. Lumbar vertebral body heights are preserved. Facet arthritis in the qvk-mi-koond lumbar spine. Multilevel lumbar spondylosis with moderate loss of disc space height at L5-S1 and L4-L5. RIGHT HIP: Moderate degenerative changes with hypertrophic changes at the bilateral sacroiliac joints. Sclerotic focus overlies the upper medial aspect of the right iliac bone, possibly a bone island. Right hip alignment maintained. Mild narrowing with degenerative changes in the right hip. IMPRESSION: 1. Multilevel lumbar spondylosis with moderate loss of disc space height at L5-S1 and L4-L5. 2. Facet arthritis in the kir-kh-jzwir lumbar spine. 3. Mild degenerative changes in the right hip. 4. Moderate degenerative changes bilateral sacroiliac joints. Assessment & Plan Assessment & Plan (1) Lumbar degenerative disc disease: Code(s): M51.36 - Other intervertebral disc degeneration, lumbar region Category: Medical (2) Right lumbar radiculitis: Code(s): M54.16 - Radiculopathy, lumbar region Category: Medical (3) Chronic bilateral low back pain: Comment: MR in Apr 2022 DJD,L3/4 and L4/5 DJD with disc extrusions Code(s): M54.50 - Low back pain, unspecified; G89.29 - Other chronic pain Category: Medical Plan Discussed trying epidural steroid injection vs. temporary nerve stimulator for back pain and numbness in her leg as a possible treatment option. We will schedule her for a right L4 transforaminal epidural steroid injection. Discussed the risks and benefits of the procedure with the patient in detail. All questions were answered. The patient is on board with the plan. She will continue with her physical therapy after the injection. Recommended trying swimming and inversion table therapy for the back pain. Justification for interventional therapy: ? Patient with average pain > 6/10 ? Patient has exhausted conservative therapy like chiropractor therapy, multiple sessions of physical therapy, including some in the recent past, and oral medications. ? Patient continuing home exercise program . Patient has a good understanding of their pain condition and has appropriate mental and social support Scribed for Dr. Melendez by Gavin Anguiano, medical staffing coordinator, on 03/13/2024. I, Dr. Melendez, have personally reviewed and agree with the information entered by the scribe. Coding Level of Care Code New Pt Level 4 (63473) Diagnoses Lumbar degenerative disc disease M51.36 Right lumbar radiculitis M54.16 Chronic bilateral low back pain M54.50; G89.29
[2024-03-13 09:37] VITALS: BP 145/70; PULSE 62; RESP 14; O2SAT 99; BMI 21.6
== END 2024-03-13 10:13 | disposition home or self-care (01) ==
PROVIDERS: PCP Internal Medicine; Visit Provider Internal Medicine
DX: M51.36 Other intervertebral disc degeneration, lumbar region (principal); M54.16 Radiculopathy, lumbar region; M54.50 Low back pain, unspecified; G89.29 Other chronic pain
CPT/HCPCS: 99204

== ENCOUNTER → 2024-03-13 09:16 | Outpatient (BNVA) | payer BC, SELFPAY | PROVIDERS: PCP Internal Medicine; Visit Provider Internal Medicine ==

== ENCOUNTER 2024-03-16 13:27 | Outpatient (AMB) | payer BC, SELFPAY ==
[2024-03-16 13:29] VITALS: BP 130/80; PULSE 75; O2SAT 97; BMI 22.6
--- NOTE | 2024-03-16 13:29 | MHC.PC.OV ---
Vital Signs 03/16/24 13:29 Height 5 ft 6 in Weight 140 lb BMI 22.6 BP 130/80 Blood Pressure Location Rt brachial Position Sitting Pulse 75 Pulse Source Pulse Oximeter Pulse Oximetry (%) 97 Oxygen Delivery Method Room Air Comment Pcp will take bp Intake Visit Reasons: PE Intake Note: Patient is here today for her Annual Physical Allergies Latex, Natural Rubber Allergy (Unknown, Verified 03/16/24 13:32) Unknown Seasonal Allergies Allergy (Unknown, Verified 03/16/24 13:32) Unknown Medication List - Last Reconciled 03/16/24 by Nadira Price MD [Rita Allergy 180 mg PO Q24H] [multivitamin ] [Probiotic ] tizanidine 2 mg PO Q8H PRN triamcinolone acetonide 0.1% 1 appl topical DAILY Tobacco use date assessed: 03/16/24 Dental Screening Dental Screen Date: 03/16/24 Did you have a dental visit in the last 12 months?: Yes Did you have a dental problem in the last 6 months where you did not have access to dental care?: No Was dental information given to patient?: Patient has dentist HPI PE HPI Details Pt presents for PE. She follows up with orthopedics and pain management for chronic lower back pain secondary to degenerative joint disease. Patient reports some tingling sensation in the right lower extremity but no weakness in extremities or change in bowel or bladder function. 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 1. Little interest or pleasure in doing things: not at all 2. Feeling down, depressed, or hopeless: several days 3. Trouble falling or staying asleep, or sleeping too much: several days 4. Feeling tired or having little energy: several days 5. Poor appetite or overeating: not at all 6. Feeling bad about yourself - or that you are a failure or have let yourself or your family down: several days 7. Trouble concentrating on things, such as reading the newspaper or watching television: not at all 8. Moving or speaking so slowly that other people could have noticed. Or the opposite - being so fidgety or restless that you have been moving around a lot more than usual: not at all 9. Thoughts that you would be better off or of hurting yourself in some way: not at all Total score: 4 Depression Screening Interpretation: Negative Depression Screening Done: Yes 64181 - PHQ-9 Billing: Yes Source: Developed by Drs. Guille Moya, Gela Barillas, Eduardo Hinton and colleagues, with an educational marietta from [employer]. Thrive Questionnaire Date Thrive assessed: 03/16/24 I am a: Patient What is your living situation today?: I have a steady place to live Within the past 12 months, did the food you bought not last and you didn't have the money to get more?: Never true Within the past 12 months, did you worry whether your food would run out before you got money to buy more?: Never true Do you have trouble paying for medicines?: No Do you have trouble getting transportation to medical appointments?: No Do you have trouble paying your heating and electricity bill?: No Do you have trouble taking care of your child, family member or friend?: No Do you have trouble with day-to-day activities such as bathing, preparing meals, shopping, managing finances, etc.?: No Are you currently unemployed and looking for a job?: No Are you interested in more education?: No Please select the resources that you would like help with: Housing/Detention Currently or been in a relationship where the following occur: No concerns reported THRIVE Score: 0 AUDIT C Alcohol Use Questionnaire (AUDIT-C) 1. How often do you have a drink containing alcohol?: Never 3. How often do you have six or more drinks on one occasion?: Never Total Score: 0 Score Reviewed/Action Taken: Yes CHICA-7 AMB Questionnaire CHICA-7 Date CHICA - 7 assessed: 03/16/24 Feeling nervous, anxious, or on edge: 1 = Several days Not being able to stop or control worryin = Several days Worrying too much about different things: 1 = Several days Trouble relaxin = Several days Being so restless that it is hard to sit still: 0 = Not at all Becoming easily annoyed or irritable: 1 = Several days Feeling afraid as if something awful might happen: 0 = Not at all Total CHICA-7 score (0-4 normal; 5-9 mild; 10-14 moderate; 15-21 severe): 5 Source: Developed by Drs. Guille Moya, Gela Barillas, Eduardo Hinton and colleagues, with an educational marietta from [employer]. CHICA-7 Assessment Billing CHICA-7 Assessment Tool: CHICA-7 Assessment 11245 Review of Systems Const All systems reviewed & are unremarkable except as noted in HPI and below Reports no additional complaints Eyes Reports no additional complaints ENT Reports no additional complaints Card Reports no additional complaints Resp Reports no additional complaints GI Reports no additional complaints Reports no additional complaints Physical exam (Primary Care) Vital Signs: Last Vital Signs Pulse 75 03/16/24 13:29 Pulse Ox 97 03/16/24 13:29 Oxygen Delivery Method Room Air 03/16/24 13:29 BMI result Body Mass Index 22.6 Tobacco/Smoking Status: Tobacco use Status Tobacco use date assessed 03/16/24 03/16/24 13:34 Patient Tobacco Use Status Never used Tobacco 03/16/24 13:34 e-Cigarette/Vaping Use Never Used 03/16/24 13:34 PHQ-9: PHQ-9 Score PHQ-9: Total score 4 03/16/24 13:34 Depression Screening Interpretation: Negative Thrive Assessment: Date of Thrive Assessment Date Thrive assessed 03/16/24 03/16/24 13:34 Currently or been in a relationship where the following occur: No concerns reported Const General: no acute distress HENMT Face and sinus: Yes normal facial exam Throat: Yes posterior oropharynx normal Neck Neck: Yes no lymphadenopathy and Yes supple Resp Effort & Inspection: normal respiratory effort Auscultation: clear to auscultation bilaterally Cardio Rhythm: regular rhythm Heart sounds: S1 normal heart sound present and S2 normal heart sound present GI Inspection: Yes normal to inspection Palpation (GI): Soft to palpation Percussion: Yes normal to percussion Auscultation: normal bowel sounds Assessment and Plan Assessment & Plan (1) Annual physical exam: Code(s): Z00.00 - Encounter for general adult medical examination without abnormal findings Plan: Well-balanced diet regular exercise stress management discussed with the patient. She will be referred for the mammogram follow-up in 1 year with a fasting labs before (2) Hyperglycemia: Code(s): R73.9 - Hyperglycemia, unspecified Orders: Orders MM screening mammo BI Today Z12.31 - Encounter for screening mammogram for malignant neoplasm of breast Comprehensive [place]. Panel Fast 1 Year R73.9 - Hyperglycemia, unspecified, Z00.00 - Encounter for general adult medical examination without abnormal findings Vitamin D 25-OH Total 1 Year R73.9 - Hyperglycemia, unspecified, Z00.00 - Encounter for general adult medical examination without abnormal findings Complete Blood Count Auto Diff 1 Year R73.9 - Hyperglycemia, unspecified, Z00.00 - Encounter for general adult medical examination without abnormal findings Lipid Panel 1 Year R73.9 - Hyperglycemia, unspecified, Z00.00 - Encounter for general adult medical examination without abnormal findings TSH reflex Free T4 1 Year R73.9 - Hyperglycemia, unspecified, Z00.00 - Encounter for general adult medical examination without abnormal findings UA w Microscopic 1 Year R73.9 - Hyperglycemia, unspecified, Z00.00 - Encounter for general adult medical examination without abnormal findings Coding Level of Care Code Est Pt Prev Care 40-64y(37215) Diagnoses Annual physical exam Z00.00 Hyperglycemia R73.9 Additional Codes CHICA-7 Assessment Billing - CHICA-7 Assessment Tool: CHICA-7 Assessment 63502 ([id number])
== END 2024-03-16 15:08 | disposition home or self-care (01) ==
PROVIDERS: PCP Internal Medicine; Visit Provider Internal Medicine
DX: Z00.00 Encounter for general adult medical examination without abnormal findings (principal); R73.9 Hyperglycemia, unspecified
CPT/HCPCS: 99396

== ENCOUNTER 2024-03-27 07:57 | Outpatient (REF) | payer BC, SELFPAY ==
[2024-03-27 10:43] LABS: Appearance Urine Clear; Color Urine Yellow; Glucose Urine UA Negative (Negative); Leukocyte Esterase Urine Negative (Negative); Nitrite Urine Negative (Negative); Specific Gravity - Urine <= 1.005 (1.005-1.025); Urine Blood Negative (Negative); Urine Ketones Negative (Negative); Urine Protein Negative (Neg-Trace)
[2024-03-27 10:48] LABS: Bacteria Urine None Seen (None Seen); Hyaline Casts Urine 0-2 /LPF (0-2); RBC Urine 0-2 /HPF (0-2); Squamous Epithelial Cell Urine 0-2 /HPF (0-2); WBC Urine 0-5 /HPF (0-5)
== END 2024-03-27 07:58 | disposition home or self-care (01) ==
LOC: HO.HMGCLDS 07:57
PROVIDERS: PCP Internal Medicine; Visit Provider Internal Medicine
DX: R80.9 Proteinuria, unspecified (principal)
CPT/HCPCS: 81001

== ENCOUNTER 2024-04-01 11:15 | Outpatient (REF) | payer BC, SELFPAY ==
--- NOTE | ~2024-04-01 | MM_ITS ---
EXAMINATION: MM SCREENING DIGITAL BREAST TOMOSYNTHESIS, BILATERAL CLINICAL INFORMATION: Screening. Asymptomatic. COMPARISON: Mammography: No prior images available for comparison. TECHNIQUE: Digital breast tomosynthesis is performed in both the craniocaudal and mediolateral oblique views along with computer-aided detection (CAD). Synthesized 2D images are generated from the tomosynthesis. FINDINGS: There are scattered areas of fibroglandular density (ACR BI-RADS breast composition Category b). There are no significant masses, abnormal calcifications, or other abnormalities. MM/MM tomosynthesis screening BI IMPRESSION: No mammographic evidence of malignancy. ASSESSMENT: BI-RADS BI-RADS 1 - Negative RECOMMENDATION: Routine annual mammography screening. 1 year F/U This examination should not preclude the clinical evaluation of a suspicious palpable abnormality. This patient's information was entered into a reminder system with a target due date for their next mammogram. Electronically signed by: Maty Barrios DO 04/29/2024 08:59 PM EDT
== END 2024-04-01 11:16 | disposition home or self-care (01) ==
LOC: HO.MAMMO 11:15
PROVIDERS: PCP Internal Medicine; Visit Provider Internal Medicine
DX: Z12.31 Encounter for screening mammogram for malignant neoplasm of breast (principal)
CPT/HCPCS: 77063; 77067

== ENCOUNTER → 2024-04-01 11:15 | Outpatient (BNV) | payer BC, SELFPAY | PROVIDERS: PCP Internal Medicine; Visit Provider Internal Medicine | DX: Z12.31 Encounter for screening mammogram for malignant neoplasm of breast (principal) | CPT/HCPCS: 77063; 77067 ==

== ENCOUNTER 2024-04-23 09:00 | Outpatient (RCR) | payer BC, SELFPAY ==
--- NOTE | 2024-03-26 10:44 | MHC.PT.EP ---
[facility] [place] Office [place] [facility] [place] [facility] [address] Carlin Hoskins [address] [phone] F: [phone] F: [phone] F: [phone] F: [phone] Physical Therapy Plan of Care Date of Evaluation: 03/26/24 Date of Surgery: Diagnosis: radiculopathy lumbar region Assessment: Patient is a 53 year old R handed female who presents with s/s consistent with radiculopathy, lumbar region, low back pain. She works with daily job demands including standing/sitting at computer. Patient past medical history includes chronic back pain. Current impairments include pain, posture, ROM, strength, activity tolerance and functional mobility. Functional limitations include decreased ability to sit, stand, walk, negotiate stairs, squat, lift, push, pull, dress and perform tasks around the house. Patient is motivated with good rehab potential. Skilled PT will address impairments and functional limitations in order to achieve goals. 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 Manual therapy to restore motion and function. Therapeutic exercise to improve strength and flexibility. Neuromuscular re-education for posture and balance. Therapeutic activities to return to functional activities of daily living. Electronically signed by: Tim Rojas, PT Please sign and return to therapist. Thank you for your referral.
--- NOTE | 2024-06-12 06:51 | MHC.PT.DC ---
[facility] [place] Office [place] Office [place] Office [address] Carlin Hoskins [address] [phone] F: [phone] F: [phone] F: [phone] F: [phone] Physical Therapy Discharge Report Diagnosis: radiculopathy lumbar region Date of Surgery: Date of Evaluation: 03/26/24 Date of Discharge: 05/03/24 Treatments to Date: 8 Cancellations to Date: No Shows to Date: Discharge Status: Achieved Goals Independent with HEP Discharge Summary: 04/23/24: pt progressed well over the course of skilled PT. all goals MET including oswestry at 2%. all questions answered which consume a good amount of time. d/c to HEP at this time. 04/21/24: reviewed mechanics and discussed d/c to HEP at length for next visit. we will update HEP with plans for progression NV. 04/16; Pt prefers to be alone at bars with exs due to being shy she stated. Pt c/o knee pain with standing and didn't like supine position for an extended period of time.04/14/24: pt progressing well with skiilled PT. no adverse reactions. continue to progress as tolerated. 04/09/24: pt has been progressing well. we will continue to transition from table ex to seated and standing ex. 04/07/24: pt progressing with core stab. good carryover and progress today. assess response and progress as tolerated. 04/02/24: initiated TAC with good response. assess post PT response and progress as tolerated. Patient is a 53 year old R handed female who presents with s/s consistent with radiculopathy, lumbar region, low back pain. She works with daily job demands including standing/sitting at computer. Patient past medical history includes chronic back pain. Current impairments include pain, posture, ROM, strength, activity tolerance and functional mobility. Functional limitations include decreased ability to sit, stand, walk, negotiate stairs, squat, lift, push, pull, dress and perform tasks around the house. Patient is motivated with good rehab potential. Skilled PT will address impairments and functional limitations in order to achieve goals. Electronically signed by: Tim Rojas PT Please sign and return to therapist. Thank you for your referral.
== END 2024-06-12 06:52 | disposition home or self-care (01) ==
LOC: HO.PTCHIC 09:00
PROVIDERS: PCP Internal Medicine; Visit Provider Physical Medicine & Rehabilitation
DX: M51.36 Other intervertebral disc degeneration, lumbar region (principal); M54.16 Radiculopathy, lumbar region
CPT/HCPCS: 97110; 97112; 97162

== ENCOUNTER 2025-03-10 07:59 | Outpatient (REF) | payer BC, SELFPAY ==
[2025-03-10 10:11] LABS: MANUAL DIFF FLAG NO
[2025-03-10 10:21] LABS: Hematocrit 41.3 % (37.0-47.0); Hemoglobin 14.0 g/dl (12.0-16.0); Imm Gran Abs Auto 0.01 X10*3/uL (0.00-0.03); Imm Gran Pct Auto 0.2 % (0.0-0.4); Lymphocytes Absolute Auto 1.9 X10*3/uL (1.2-4.9); Mean Corpuscular HGB Conc 33.9 g/dl (31.0-35.0); Mean Corpuscular Hemoglobin 31.3 pg (27.0-33.0); Mean Corpuscular Volume 92.2 fL (80.0-98.0); NRBC Abs Auto 0.000 X10*3/uL (0.0-0.012); NRBC Pct Auto 0.0 /100WBC (0.0-0.2); Platelet Count 274 X10*3/uL (160-400); Red Blood Count 4.48 X10*6/uL (4.20-5.50); White Blood Count 5.1 X10*3/uL (4.8-10.8)
[2025-03-10 10:54] LABS: Appearance Urine Clear; Glucose Urine UA Negative (Negative); PH 8.5 (5.0-9.0); Specific Gravity - Urine <= 1.005 (1.005-1.025)
[2025-03-10 10:56] LABS: Alanine Aminotransferase 22 U/L (0-31); Albumin Level 4.4 g/dL (3.5-5.0); Alkaline Phosphatase 58 U/L (39-117); Anion Gap 11 (12-20); Aspartate Amino Transferase 25 U/L (5-31); Blood Urea Nitrogen 8 mg/dL (9-16); Calcium 8.8 mg/dL (8.4-10.2); Carbon Dioxide 27 mmol/L (22-29); Chloride 105 mmol/L (96-108); Cholesterol 262 mg/dL (<200); Estimated Glomerular Filt Rate > 60; HDL Cholesterol 79 mg/dL (>40); Potassium 3.9 mmol/L (3.3-5.1); Sodium 139 mmol/L (135-145); Total Protein 7.2 g/dL (6.5-8.0); Triglycerides 68 mg/dL (<150)
== END 2025-03-10 08:00 | disposition home or self-care (01) ==
LOC: HO.HMGCLDS 07:59
PROVIDERS: PCP Internal Medicine; Visit Provider Internal Medicine
DX: Z00.00 Encounter for general adult medical examination without abnormal findings (principal); R73.9 Hyperglycemia, unspecified
CPT/HCPCS: 36415; 80053; 80061; 81001; 82306; 84443; 85025

== ENCOUNTER 2025-03-17 13:09 | Outpatient (REF) | payer BC, SELFPAY ==
--- NOTE | ~2025-03-17 | XR_ITS ---
EXAMINATION: XR HAND 1-2 VIEWS RIGHT HISTORY: M67.441 - Ganglion, right hand COMPARISON: There are no prior studies available for comparison. FINDINGS: Three views of the right hand are submitted. Osseous mineralization is normal. There is no fracture or dislocation. The joint spaces are preserved. The soft tissues are unremarkable. XR/XR hand RT 2V IMPRESSION: Unremarkable examination of the right hand. Electronically signed by: Guille Moralez MD 03/18/2025 07:06 AM EDT
--- NOTE | ~2025-03-17 | XR_ITS ---
EXAMINATION: XR CHEST 1 VIEW HISTORY: R06.09 - Other forms of dyspnea COMPARISON: There are no prior studies available for comparison. FINDINGS: A single PA view of the chest is submitted. The lungs are expanded and clear. There is no pleural effusion, pneumothorax, or pulmonary vascular congestion. The heart is normal in size. The bones are intact. XR/XR chest 1V IMPRESSION: Clear lungs. Electronically signed by: Guille Moralez MD 03/18/2025 07:09 AM EDT
== END 2025-03-17 13:10 | disposition home or self-care (01) ==
LOC: HO.HMGCX 13:09
PROVIDERS: PCP Internal Medicine; Visit Provider Internal Medicine
DX: Z00.00 Encounter for general adult medical examination without abnormal findings (principal); M67.441 Ganglion, right hand; R06.09 Other forms of dyspnea; E78.5 Hyperlipidemia, unspecified
CPT/HCPCS: 71045; 73120; 96127

== ENCOUNTER 2025-03-17 13:09 | Outpatient (AMB) | payer BC, SELFPAY ==
--- NOTE | 2025-03-17 13:23 | A.OFFPC_ITS ---
Vital Signs 03/17/25 13:37 Height 5 ft 6 in Weight 144 lb BMI 23.2 BP 118/70 Blood Pressure Location Lt brachial Position Sitting Respiration 18 Pulse 70 Pulse Source Pulse Oximeter Temp 98.4 F Temp Source Oral Pulse Oximetry (%) 99 Oxygen Delivery Method Room Air Intake Visit Reasons: CPE Intake Note: Pt is here today for PE. Allergies Latex, Natural Rubber Allergy (Unknown, Verified 03/17/25 13:46) Unknown Seasonal Allergies Allergy (Unknown, Verified 03/17/25 13:46) Unknown Medication List - Last Reconciled 03/17/25 by Nadira Price MD cetirizine (Zyrtec) 10 mg PO DAILY PRN estradiol (Vivelle-Dot) 1 patch transdermal 2XW [multivitamin ] [Probiotic ] progesterone micronized 100 mg PO QAM tizanidine 2 mg PO Q8H PRN triamcinolone acetonide 0.1% 1 appl topical DAILY Tobacco use date assessed: 03/17/25 Dental Screening Dental Screen Date: 03/17/25 Did you have a dental visit in the last 12 months?: Yes Did you have a dental problem in the last 6 months where you did not have access to dental care?: No Was dental information given to patient?: Patient has dentist HPI CPE HPI Details Pt presents for PE. Patient is started hormone replacement therapy for persistent hot flashes and is established with practice specialist. She reports intermittent feeling she is not getting enough air while washing her face or walking up the stairs once or twice a month. Patient has stopped exercising a few months ago but is planning to return to her regular routine. 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 1. Little interest or pleasure in doing things: not at all 2. Feeling down, depressed, or hopeless: several days 3. Trouble falling or staying asleep, or sleeping too much: several days 4. Feeling tired or having little energy: several days 5. Poor appetite or overeating: not at all 6. Feeling bad about yourself - or that you are a failure or have let yourself or your family down: several days 7. Trouble concentrating on things, such as reading the newspaper or watching television: not at all 8. Moving or speaking so slowly that other people could have noticed. Or the opposite - being so fidgety or restless that you have been moving around a lot more than usual: not at all 9. Thoughts that you would be better off or of hurting yourself in some way: not at all Total score: 4 Depression Screening Interpretation: Negative Depression Screening Done: Yes 79395 - PHQ-9 Billing: Yes Source: Developed by Drs. Guille Moya, Gela Barillas, Eduardo Hinton and colleagues, with an educational marietta from [employer]. Thrive Questionnaire Date Thrive assessed: 03/17/25 I am a: Patient What is your living situation today?: I have a steady place to live Within the past 12 months, did the food you bought not last and you didn't have the money to get more?: Never true Within the past 12 months, did you worry whether your food would run out before you got money to buy more?: Never true Do you have trouble paying for medicines?: No Do you have trouble getting transportation to medical appointments?: No Do you have trouble paying your heating and electricity bill?: No Do you have trouble taking care of your child, family member or friend?: No Do you have trouble with day-to-day activities such as bathing, preparing meals, shopping, managing finances, etc.?: No Are you currently unemployed and looking for a job?: No Are you interested in more education?: No Please select the resources that you would like help with: None Currently or been in a relationship where the following occur: No concerns reported THRIVE Score: 0 AUDIT C Alcohol Use Questionnaire (AUDIT-C) 1. How often do you have a drink containing alcohol?: Never 3. How often do you have six or more drinks on one occasion?: Never Total Score: 0 CHICA-7 AMB Questionnaire CHICA-7 Date CHICA - 7 assessed: 03/17/25 Feeling nervous, anxious, or on edge: 1 = Several days Not being able to stop or control worryin = Several days Worrying too much about different things: 1 = Several days Trouble relaxin = Not at all Being so restless that it is hard to sit still: 0 = Not at all Becoming easily annoyed or irritable: 1 = Several days Feeling afraid as if something awful might happen: 1 = Several days Total CHICA-7 score (0-4 normal; 5-9 mild; 10-14 moderate; 15-21 severe): 5 Source: Developed by Drs. Guille Moya, Gela Barillas, Eduardo Hinton and colleagues, with an educational marietta from [employer]. CHICA-7 Assessment Billing CHICA-7 Assessment Tool: CHICA-7 Assessment 83823 Review of Systems Const All systems reviewed & are unremarkable except as noted in HPI and below Reports no additional complaints Eyes Reports no additional complaints ENT Reports no additional complaints Card Reports no additional complaints Resp Reports no additional complaints GI Reports no additional complaints Reports no additional complaints Physical exam (Primary Care) Vital Signs: Last Vital Signs Temp 98.4 F 03/17/25 13:37 Pulse 70 03/17/25 13:37 Resp 18 03/17/25 13:37 BP 118/70 03/17/25 13:37 Pulse Ox 99 03/17/25 13:37 Oxygen Delivery Method Room Air 03/17/25 13:37 BMI result Body Mass Index 23.2 Tobacco/Smoking Status: Tobacco use Status Tobacco use date assessed 03/17/25 03/17/25 13:50 Patient Tobacco Use Status Never used Tobacco 03/17/25 13:24 e-Cigarette/Vaping Use Never Used 03/17/25 13:24 PHQ-9: PHQ-9 Score PHQ-9: Total score 4 03/17/25 13:50 Depression Screening Interpretation: Negative Thrive Assessment: Date of Thrive Assessment Date Thrive assessed 03/17/25 03/17/25 13:50 Currently or been in a relationship where the following occur: No concerns reported Const General: no acute distress HENMT Head: Yes normal to inspection Ears: hearing grossly normal bilaterally Face and sinus: Yes normal facial exam Mouth: Normal oral and palatal mucosa present Throat: Yes posterior oropharynx normal Eyes General: appearance normal, both eyes and all related structures Neck Neck: Yes no lymphadenopathy and Yes supple Resp Effort & Inspection: normal respiratory effort Auscultation: clear to auscultation bilaterally Cardio Rhythm: regular rhythm Heart sounds: S1 normal heart sound present and S2 normal heart sound present GI Inspection: Yes normal to inspection Palpation (GI): Soft to palpation Percussion: Yes normal to percussion Auscultation: normal bowel sounds Coding Level of Care Code Est Pt Prev Care 40-64y(79213) Diagnoses Ganglion cyst of tendon sheath of right hand M67.441 HAWTHORNE (dyspnea on exertion) R06.09 Hyperlipidemia E78.5 Annual physical exam Z00.00 Additional Codes CHICA-7 Assessment Billing - CHICA-7 Assessment Tool: CHICA-7 Assessment 09261 ([id number]) PHQ-9 - 86058 - PHQ-9 Billing: Yes ([id number]) Assessment & Plan Assessment & Plan (1) Ganglion cyst of tendon sheath of right hand: Code(s): M67.441 - Ganglion, right hand Category: Medical Plan: Check x-rays supportive care discussed with the patient. If she develops increasing pain she will be referred to hand surgeon (2) HAWTHORNE (dyspnea on exertion): Code(s): R06.09 - Other forms of dyspnea Category: Medical Plan: Check chest x-ray, EKG showed normal sinus rhythm no ST-T changes (3) Hyperlipidemia: Code(s): E78.5 - Hyperlipidemia, unspecified Category: Medical Plan: For worsening hyperlipidemia despite low-cholesterol diet pravastatin 40 mg will be started patient will follow-up in 2 months with a fasting labs before (4) Annual physical exam: Code(s): Z00.00 - Encounter for general adult medical examination without abnormal findings Category: Medical Plan: Well-balanced diet regular exercise discussed with the patient she is up-to-date with the mammogram and colonoscopy and follows up with practice specialist for hormone replacement therapy Orders: Orders XR hand RT 2V Today M67.441 - Ganglion, right hand XR chest 1V Today R06.09 - Other forms of dyspnea Comprehensive [place]. Panel Fast 2 Months E78.5 - Hyperlipidemia, unspecified Lipid Panel 2 Months E78.5 - Hyperlipidemia, unspecified AMB EKG-In Office Today E78.5 - Hyperlipidemia, unspecified, R06.09 - Other forms of dyspnea, R20.0 - Anesthesia of skin, Z00.00 - Encounter for general adult medical examination without abnormal findings Medications: New pravastatin 40 mg PO BEDTIME 90 tabs 0RF
[2025-03-17 13:37] VITALS: BP 118/70; PULSE 70; RESP 18; TEMP 36.9; O2SAT 99; BMI 23.2
== END 2025-03-17 14:28 | disposition home or self-care (01) ==
LOC: HO.HMCC 13:10
PROVIDERS: PCP Internal Medicine; Visit Provider Internal Medicine
DX: M67.441 Ganglion, right hand (principal); R06.09 Other forms of dyspnea; E78.5 Hyperlipidemia, unspecified; Z00.00 Encounter for general adult medical examination without abnormal findings

== ENCOUNTER → 2025-03-17 14:43 | Outpatient (BNV) | payer BC, SELFPAY | PROVIDERS: PCP Internal Medicine; Visit Provider Radiology Diagnostic Radiology | DX: R06.09 Other forms of dyspnea (principal); M67.441 Ganglion, right hand | CPT/HCPCS: 71045; 73120 ==

== ENCOUNTER 2025-04-05 10:30 | Outpatient (REF) | payer BC, SELFPAY | END 2025-04-05 10:31 | disposition home or self-care (01) | LOC: HO.MAMMO 10:30 | PROVIDERS: PCP Internal Medicine; Visit Provider Internal Medicine | DX: Z12.31 Encounter for screening mammogram for malignant neoplasm of breast (principal) | CPT/HCPCS: 77063; 77067 ==

== ENCOUNTER → 2025-04-05 10:30 | Outpatient (BNV) | payer BC, SELFPAY | PROVIDERS: PCP Internal Medicine; Visit Provider Internal Medicine | DX: Z12.31 Encounter for screening mammogram for malignant neoplasm of breast (principal) | CPT/HCPCS: 77063; 77067 ==

== ENCOUNTER 2025-05-18 08:01 | Outpatient (REF) | payer BC, SELFPAY ==
[2025-05-18 10:55] LABS: Alanine Aminotransferase 19 U/L (0-31); Albumin Level 4.5 g/dL (3.5-5.0); Alkaline Phosphatase 50 U/L (39-117); Anion Gap 11 (12-20); Aspartate Amino Transferase 26 U/L (5-31); Blood Urea Nitrogen 7 mg/dL (9-16); Calcium 8.9 mg/dL (8.4-10.2); Carbon Dioxide 29 mmol/L (22-29); Chloride 105 mmol/L (96-108); Cholesterol 203 mg/dL (<200); Estimated Glomerular Filt Rate > 60; HDL Cholesterol 76 mg/dL (>40); Potassium 4.7 mmol/L (3.3-5.1); Sodium 140 mmol/L (135-145); Total Protein 7.1 g/dL (6.5-8.0); Triglycerides 55 mg/dL (<150)
[2025-05-21 21:29] LABS: Prot Elec - Albumin 4.3 g/dL (3.8-4.8); Prot Elec - Alpha1 0.3 g/dL (0.2-0.3); Prot Elec - Alpha2 0.6 g/dL (0.5-0.9); Prot Elec - Beta 1 0.4 g/dL (0.4-0.6); Prot Elec - Beta 2 0.5 g/dL (0.2-0.5); Prot Elec - Gamma 0.7 g/dL (0.8-1.7); Prot Elec - Total Protein 6.8 g/dL (6.1-8.1)
== END 2025-05-18 08:02 | disposition home or self-care (01) ==
LOC: HO.HMGCLDS 08:01
PROVIDERS: PCP Internal Medicine; Visit Provider Internal Medicine
DX: M79.18 Myalgia, other site (principal); E78.5 Hyperlipidemia, unspecified
CPT/HCPCS: 36415; 80053; 80061; 84165; 85652; 86140

== ENCOUNTER 2025-05-21 10:45 | Outpatient (AMB) | payer BC, SELFPAY ==
--- NOTE | 2025-05-21 10:48 | MHC.PC.OV ---
Vital Signs 05/21/25 10:49 Height 5 ft 6 in Weight 143 lb BMI 23.1 BP 118/74 Blood Pressure Location Lt brachial Position Sitting Respiration 17 Pulse 71 Pulse Source Pulse Oximeter Temp 98.1 F Temp Source Oral Pulse Oximetry (%) 98 Oxygen Delivery Method Room Air Intake Visit Reasons: 2m follow up Intake Note: Pt is here today for 2 months follow up visit. Allergies Latex, Natural Rubber Allergy (Unknown, Verified 05/21/25 10:50) Unknown Seasonal Allergies Allergy (Unknown, Verified 05/21/25 10:50) Unknown Tobacco use date assessed: 05/21/25 Dental Screening Dental Screen Date: 03/17/25 HPI 2m follow up HPI Details Patient presents for the follow-up of hyperlipidemia. She has been taking 40 mg of pravastatin and denies side effects. Patient reports screening sensation of swollen lips tongue and in her mouth for many months. She change her toothpaste and has been discussing the problem with her dentist. 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 1. Little interest or pleasure in doing things: not at all 2. Feeling down, depressed, or hopeless: not at all 3. Trouble falling or staying asleep, or sleeping too much: not at all 4. Feeling tired or having little energy: not at all 5. Poor appetite or overeating: not at all 6. Feeling bad about yourself - or that you are a failure or have let yourself or your family down: not at all 7. Trouble concentrating on things, such as reading the newspaper or watching television: not at all 8. Moving or speaking so slowly that other people could have noticed. Or the opposite - being so fidgety or restless that you have been moving around a lot more than usual: not at all 9. Thoughts that you would be better off or of hurting yourself in some way: not at all Total score: 0 Depression Screening Interpretation: Negative Depression Screening Done: Yes Source: Developed by Drs. Guille Moya, Gela Barillas, Eduardo Hinton and colleagues, with an educational marietta from [employer]. Thrive Questionnaire Date Thrive assessed: 03/17/25 I am a: Patient What is your living situation today?: I have a steady place to live Within the past 12 months, did the food you bought not last and you didn't have the money to get more?: Never true Within the past 12 months, did you worry whether your food would run out before you got money to buy more?: Never true Do you have trouble paying for medicines?: No Do you have trouble getting transportation to medical appointments?: No Do you have trouble paying your heating and electricity bill?: No Do you have trouble taking care of your child, family member or friend?: No Do you have trouble with day-to-day activities such as bathing, preparing meals, shopping, managing finances, etc.?: No Are you currently unemployed and looking for a job?: No Are you interested in more education?: No Please select the resources that you would like help with: None Currently or been in a relationship where the following occur: No concerns reported THRIVE Score: 0 AUDIT C Alcohol Use Questionnaire (AUDIT-C) 1. How often do you have a drink containing alcohol?: Never 3. How often do you have six or more drinks on one occasion?: Never Total Score: 0 CHICA-7 AMB Questionnaire CHICA-7 Date CHICA - 7 assessed: 03/17/25 Feeling nervous, anxious, or on edge: 1 = Several days Not being able to stop or control worryin = Several days Worrying too much about different things: 1 = Several days Trouble relaxin = Not at all Being so restless that it is hard to sit still: 0 = Not at all Becoming easily annoyed or irritable: 1 = Several days Feeling afraid as if something awful might happen: 1 = Several days Total CHICA-7 score (0-4 normal; 5-9 mild; 10-14 moderate; 15-21 severe): 5 Source: Developed by Drs. Guille Moya, Gela Barillas, Eduardo Hinton and colleagues, with an educational marietta from [employer]. Review of Systems Const All systems reviewed & are unremarkable except as noted in HPI and below Eyes Reports no additional complaints ENT Reports no additional complaints Card Reports no additional complaints Resp Reports no additional complaints GI Reports no additional complaints Reports no additional complaints Physical exam (Primary Care) Vital Signs: Last Vital Signs Temp 98.1 F 05/21/25 10:49 Pulse 71 05/21/25 10:49 Resp 17 05/21/25 10:49 BP 118/74 05/21/25 10:49 Pulse Ox 98 05/21/25 10:49 Oxygen Delivery Method Room Air 05/21/25 10:49 BMI result Body Mass Index 23.1 Tobacco/Smoking Status: Tobacco use Status Tobacco use date assessed 05/21/25 05/21/25 10:54 Patient Tobacco Use Status Never used Tobacco 05/21/25 10:54 e-Cigarette/Vaping Use Never Used 05/21/25 10:54 PHQ-9: PHQ-9 Score PHQ-9: Total score 0 05/21/25 10:56 Depression Screening Interpretation: Negative Thrive Assessment: Date of Thrive Assessment Date Thrive assessed 03/17/25 05/21/25 10:54 Currently or been in a relationship where the following occur: No concerns reported Const General: no acute distress HENMT Ears: TM's normal bilaterally Face and sinus: Yes normal facial exam Mouth: Normal oral and palatal mucosa present, lip normal, tongue normal, Normal salivary glands and ducts present, oropharynx normal and moist mucous membranes Teeth and gingiva: dentition normal Throat: Yes posterior oropharynx normal Eyes General: appearance normal, both eyes and all related structures Neck Neck: Yes no lymphadenopathy and Yes supple Resp Effort & Inspection: normal respiratory effort Auscultation: clear to auscultation bilaterally Cardio Rhythm: regular rhythm Heart sounds: S1 normal heart sound present and S2 normal heart sound present Coding Level of Care Code Est Pt Level 4 (83469) Diagnoses Hyperlipidemia E78.5 Swollen tongue R22.0 Assessment & Plan Assessment & Plan (1) Hyperlipidemia: Code(s): E78.5 - Hyperlipidemia, unspecified Category: Medical Plan: Continue pravastatin and pt will follow-up in 6 months with a fasting labs before (2) Swollen tongue: Code(s): R22.0 - Localized swelling, mass and lump, head Category: Medical Plan: Patient was reassured that she does not have any allergic reaction. Most likely her symptoms are related to dry mouth. She will follow-up with her dentist Orders: Orders Vitamin B12 and Folate Today Z00.00 - Encounter for general adult medical examination without abnormal findings Vitamin B1 Today Z00.00 - Encounter for general adult medical examination without abnormal findings Vitamin B6 Today Z00.00 - Encounter for general adult medical examination without abnormal findings
[2025-05-21 10:49] VITALS: BP 118/74; PULSE 71; RESP 17; TEMP 36.7; O2SAT 98; BMI 23.1
== END 2025-05-21 12:14 | disposition home or self-care (01) ==
LOC: HO.HMCC 10:45
PROVIDERS: PCP Internal Medicine; Visit Provider Internal Medicine
DX: E78.5 Hyperlipidemia, unspecified (principal); R22.0 Localized swelling, mass and lump, head

== ENCOUNTER 2025-05-21 10:45 | Outpatient (REF) | payer BC, SELFPAY ==
[2025-05-21 14:30] LABS: Folate > 20.0 ng/mL (> or = 4.0); Vitamin B12 467 pg/mL (200-900)
== END 2025-05-21 10:46 | disposition home or self-care (01) ==
LOC: HO.HMGCLDS 10:45
PROVIDERS: PCP Internal Medicine; Visit Provider Internal Medicine
DX: Z00.00 Encounter for general adult medical examination without abnormal findings (principal); E78.5 Hyperlipidemia, unspecified; R22.0 Localized swelling, mass and lump, head
CPT/HCPCS: 36415; 82607; 82746; 84207; 84425; 96127

== ENCOUNTER 2025-07-12 11:37 | Outpatient (REF) | payer BC, SELFPAY ==
[2025-07-15 16:42] LABS: Kappa, Serum 217 mg/dL (176-443); Kappa/Lambda Ratio, Serum 1.78 (1.29-2.55); Lambda, Serum 122 mg/dL (91-240)
== END 2025-07-12 11:38 | disposition home or self-care (01) ==
LOC: HO.HMGCLDS 11:37
PROVIDERS: PCP Internal Medicine; Visit Provider Internal Medicine
DX: D80.1 Nonfamilial hypogammaglobulinemia (principal)
CPT/HCPCS: 36415; 83883

== ENCOUNTER 2025-07-13 07:01 | Outpatient (REF) | payer BC, SELFPAY ==
[2025-07-16 10:47] LABS: PEU-Protein Creat Ratio Rand 0.111 (0.024-0.184); PEU-Rand. Prot/Creat Ratio 111 mg/g creat (24-184); PEU-Random Ur. Gamma Globulin 0 %; PEU-Random Urine A1 Globulin 0 %; PEU-Random Urine A2 Globulin 0 %; PEU-Random Urine Albumin 100 %; PEU-Random Urine Beta Globulin 0 %; PEU-Random Urine Creatinine 36 mg/dL (20-275); PEU-Random Urine Protein 4 mg/dL (5-24)
== END 2025-07-13 07:02 | disposition home or self-care (01) ==
LOC: HO.HMGCLNP 07:01
PROVIDERS: PCP Internal Medicine; Visit Provider Internal Medicine
DX: D80.1 Nonfamilial hypogammaglobulinemia (principal)
CPT/HCPCS: 82570; 84156; 84166